=== PATIENT | male | born 1975 | race African-American/Black ===

== ENCOUNTER 2018-06-23 09:24 | Inpatient (IN) | payer OTHER ==
[2018-06-23 10:29] VITALS: BMI 27.3
--- NOTE | 2018-06-23 11:42 | HP ---
CIWA Score - Admission Criteria [facility] Guidelines: Admission for Medically Managed Detox: Requires at least one of the followin. CIWA greater than 12 2. Seizures within the past 24 hours 3. Delirium tremens within the past 24 hours 4. Hallucinations within the past 24 hours 5. Acute intervention needed for co occurring medical disorder 6. Acute intervention needed for co occurring psychiatric disorder 7. Severe withdrawal that cannot be handled at a lower level of care (continued vomiting, continued diarrhea, abnormal vital signs) requiring intravenous medication and/or fluids 8. Admission ROS [facility] - HPI Chief Complaint: i need help to stop drinking alcohol Allergies/Adverse Reactions: Allergies Allergy/AdvReac Type Severity Reaction Status Date / Time No Known Allergies Allergy Verified 06/23/18 10:08 History of Present Illness: this 43 years old male with alcohol dependence,seeking help,no withdrawal symptom,last detox [facility] multiple admissions in the past,last detox 06/01 [facility] completed detox hypertension rhabdomyolysis admitted in [facility] 06/20/18 to 06/22/18 schizophrenia and antisocial personality disorder longest period of sobriety 1 year plan for rehab history of left orchidectomy at childhood - Ebola screening Have you traveled outside of the country in the last 21 days: No (N) Have you had contact with anyone from an Ebola affected area: No Do you have a fever: No - Review of Systems Constitutional: Loss of Appetite, Malaise, Night Sweats, Changes in sleep, Weakness EENT: reports: Tearing, Nose Congestion Respiratory: reports: No Symptoms reported Cardiac: reports: No Symptoms Reported GI: reports: Nausea, Poor Appetite, Abdominal cramping : reports: No Symptoms Reported Musculoskeletal: reports: Back Pain, Muscle Pain Integumentary: reports: Dryness Neuro: reports: Headache, Tremors Endocrine: reports: No Symptoms Reported Hematology: reports: No Symptoms Reported Psychiatric: reports: No Sypmtoms Reported, Judgement Intact, Mood/Affect Appropiate, Orientated x3 (schizophrenia) Patient History - Patient Medical History Hx Anemia: No Hx Asthma: No Hx Chronic Obstructive Pulmonary Disease (COPD): No Hx Cancer: No Hx Cardiac Disorders: No Hx Congestive Heart Failure: No Hx Hypertension: Yes (on med) Hx Hypercholesterolemia: No Hx Pacemaker: No HX Cerebrovascular Accident: No Hx Seizures: No Hx Dementia: No Hx Diabetes: No Hx Gastrointestinal Disorders: No Hx Liver Disease: No Hx Genitourinary Disorders: No Hx Sexually Transmitted Disorders: Yes (treated fo syphilis in 2013 treated) Hx Renal Disease (ESRD): No Hx Thyroid Disease: No Hx Human Immunodeficiency Virus (HIV): No (07/02 negative) Hx Hepatitis C: No Hx Depression: No Hx Suicide Attempt: Yes ([place]) Hx Bipolar Disorder: Yes Hx Schizophrenia: Yes Other Medical History: no suicidal,no homicidal,rhabdomyolysis 06/20/18 to 06/22 admitted - Patient Surgical History Past Surgical History: Yes Other Surgical History: left orchidectomy left at childhood,torsion? - PPD History Previous Implant?: Yes Documented Results: Negative w/o proof Implanted On Prior [facility] Admission?: No PPD to be Administered?: Yes - Smoking Cessation Smoking history: Current every day smoker Have you smoked in the past 12 months: Yes Aproximately how many cigarettes per day: 20 Cigars Per Day: 0 Hx Chewing Tobacco Use: No Initiated information on smoking cessation: Yes 'Breaking Loose' booklet given: 06/23/18 - Substance & Tx. History Hx Alcohol Use: Yes Hx Substance Use: No Substance Use Type: Alcohol Hx Substance Use Treatment: Yes ([facility] 06/01 completed) - Substances abused Alcohol Substance route: Oral Frequency: Daily Amount used: 3 pt. liquor, 3 beers 40 cans each Age of first use: 13 Date of last use: 06/12/18 Family Disease History - Family Disease History Family History: Denies Admission Physical Exam [facility] - Vital Signs Vital Signs: Vital Signs - 24 hr 06/23/18 10:04 Temperature 97.9 F Pulse Rate 80 Respiratory 18 Rate Blood Pressure 166/113 H - Physical General Appearance: Yes: Within Normal Limits HEENTM: Yes: Normal ENT Inspection, JAZIEL, Pharynx Normal Respiratory: Yes: Lungs Clear, Normal Breath Sounds, No Respiratory Distress Neck: Yes: Within Normal Limits, Supple, Trachea in good position Breast: Yes: Within Normal Limits Cardiology: Yes: Within Normal Limits, Regular Rhythm, Regular Rate, S1, S2 Abdominal: Yes: Within Normal Limits, Normal Bowel Sounds, Non Tender, Flat, Soft Genitourinary: Yes: Within Normal Limits, Other (left orchidectomy) Back: Yes: Within Normal Limits Musculoskeletal: Yes: Within Normal Limits Extremities: Yes: Within Normal Limits Neurological: Yes: 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 NML intact, Fully Oriented, Alert, Motor Strength 5/5 Integumentary: Yes: Within Normal Limits Lymphatic: Yes: Within Normal Limits - Diagnostic (1) Alcohol dependence Current Visit: Yes Status: Chronic Cleared for Admission [facility] - Detox or Rehab Claeared for Rehab Admission: Yes Breathalyzer - Breathalyzer Breathalyzer: 0 Urine Drug Screen - Test Device Lot number: [id number] Expiration date: 02/13/20 - Control Is test valid?: Yes - Results Drug screen NEGATIVE: Yes Inpatient Rehab Admission - Rehab Decision to Admit Inpatient rehab admission?: Yes - Initial Determination Are CD services needed?: Yes Free of communicable disease: Yes Not in need of hospitalization: Yes - Rehab Admission Criteria Previous failed treatment: Yes Poor recovery environment: Yes Comorbidities: Yes Lacks judgement: No Patient is meeting Inpatient Rehab admission criteria:: Yes
[2018-06-23] MEDS ORDERED: guaiFENesin 200 MG/10 ML 10 ML UNIT-DOSE CUPS PO PRN (13:02)
[2018-06-23] MEDS ORDERED: MENTHOL/PHENOL 1 EACH UD MM PRN (13:02)
[2018-06-23] MEDS ORDERED: MAG HYDROX/AL HYDROX/SIMETH 30 ML UNIT-DOSE CUP PO PRN (13:02)
[2018-06-23] MEDS ORDERED: MAGNESIUM HYDROX 2400MG/30ML ORAL SUSPENSION 30 ML CUP PO PRN (13:02)
[2018-06-23] MEDS ORDERED: hydrOXYzine PAMOATE 25 MG CAPSULE (FP) PO PRN (13:02)
[2018-06-23] MEDS ORDERED: MAGNESIUM CITRATE 300 ML BOTTLE PO PRN (13:02)
[2018-06-23] MEDS ORDERED: P-EPHED 60MG/TRIPROLIDI 2.5MG TABLET PO PRN (13:02)
[2018-06-23] MEDS ORDERED: LOPERAMIDE HCL 2 MG CAPSULE PO PRN (13:02)
[2018-06-23] MEDS ORDERED: ACETAMINOPHEN 325 MG TABLET (FP) PO PRN (13:02)
[2018-06-23] MEDS: amLODIPine BESYLATE 5 MG TABLET (FP) PO SCH (14:05)
[2018-06-23] MEDS ORDERED: TUBERCULIN PPD 5 TU/0.1ML VIAL ID ONE (14:55)
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
[2018-06-23] MEDS: THIAMINE HCL 100 MG TABLET (FP) PO SCH (21:07)
[2018-06-23] MEDS: MIRTAZAPINE 15 MG TABLET (FP) PO SCH (21:08)
[2018-06-23] MEDS ORDERED: QUEtiapine FUMARATE 100 MG TABLET (FP) PO SCH (22:00)
[2018-06-23] MEDS ORDERED: MELATONIN 5 MG TABLETS PO PRN (22:00)
[2018-06-24 10:10] LABS: HEMATOCRIT 39.9 % (35.4-49); HEMOGLOBIN 13.4 GM/dL (11.7-16.9); MCH 29.5 pg (25.7-33.7); MCHC 33.7 g/dl (32.0-35.9); MEAN CELL VOLUME 87.5 fl (80-96); MEAN PLT VOLUME 8.4 fl (7.5-11.1); PLATELET COUNT 228 K/MM3 (134-434); RBC 4.56 M/mm3 (4.00-5.60); RDW 13.6 % (11.9-15.9); WHITE BLOOD COUNT 5.4 K/mm3 (4.0-10.0)
[2018-06-24 10:29] LABS: ALBUMIN 3.4 g/dl (3.4-5.0); ALK PHOS 53 U/L (45-117); ANION GAP 7 MMOL/L (8-16); BILIRUBIN,TOTAL 0.5 mg/dL (0.2-1); BLOOD UREA NITROGEN 17 mg/dL (7-18); CALCIUM 7.9 mg/dL (8.5-10.1); CHLORIDE 107 mmol/L (98-107); CO2 28 mmol/L (21-32); GLUCOSE,RANDOM 86 mg/dL (74-106); POTASSIUM 3.8 mmol/L (3.5-5.1); SGOT/AST 26 U/L (15-37); SGPT/ALT 46 U/L (13-61); SODIUM 142 mmol/L (136-145); TOT PROT 6.3 g/dl (6.4-8.2)
[2018-06-24] MEDS: risperiDONE 1 MG TABLET (FP) PO SCH (10:35)
[2018-06-24] MEDS: PRENATAL VITAMINS W/ FOLIC ACID TABLET (FP) PO SCH (10:35)
[2018-06-24] MEDS: amLODIPine BESYLATE 5 MG TABLET (FP) PO SCH (10:36)
[2018-06-24 11:00] LABS: SICKLE CELL SCREEN NEGATIVE (NEGATIVE)
--- NOTE | 2018-06-24 11:28 | PN ---
[facility] Progress Note Note: NEW ADMISSION TO REHAB. HX ALCOHOL DEPENDENCE. ALERT O X 3. Vital Signs - 24 hr 06/24/18 06/24/18 06/24/18 00:30 03:30 06:46 Temperature 97.6 F Pulse Rate 60 Respiratory 18 18 18 Rate Blood Pressure 142/86 06/24/18 10:00 Temperature Pulse Rate 71 Respiratory Rate Blood Pressure 137/91 Laboratory Tests 06/24/18 06/24/18 08:12 08:12 WBC 5.4 RBC 4.56 Hgb 13.4 Hct 39.9 MCV 87.5 MCH 29.5 MCHC 33.7 RDW 13.6 Plt Count 228 MPV 8.4 Sickle Cell Screen Negative Sodium 142 Potassium 3.8 Chloride 107 Carbon Dioxide 28 Anion Gap 7 L BUN 17 Creatinine 1.0 Creat Clearance w eGFR 81.17 Random Glucose 86 Calcium 7.9 L Total Bilirubin 0.5 AST 26 ALT 46 Alkaline Phosphatase 53 Total Protein 6.3 L Albumin 3.4 LABS NOTED PLAN:CONTINUE REHAB
[2018-06-24] MEDS: THIAMINE HCL 100 MG TABLET (FP) PO SCH (21:17)
[2018-06-24] MEDS: MIRTAZAPINE 15 MG TABLET (FP) PO SCH (21:17)
[2018-06-25] MEDS: amLODIPine BESYLATE 5 MG TABLET (FP) PO SCH (10:15)
[2018-06-25] MEDS: risperiDONE 1 MG TABLET (FP) PO SCH (10:15)
[2018-06-25] MEDS: PRENATAL VITAMINS W/ FOLIC ACID TABLET (FP) PO SCH (10:15)
[2018-06-25 15:12] LABS: URINE APPEARANCE CLEAR; URINE BILIRUBIN NEGATIVE (NEGATIVE); URINE COLOR YELLOW; URINE GLUCOSE (UA) NEGATIVE (NEGATIVE); URINE KETONE NEGATIVE (NEGATIVE); URINE LEUK ESTERASE NEGATIVE (NEGATIVE); URINE NITRITE NEGATIVE (NEGATIVE); URINE PROTEIN NEGATIVE (NEGATIVE); URINE UROBILINOGEN 0.2 mg/dL (0.2-1.0)
[2018-06-25] MEDS: MIRTAZAPINE 15 MG TABLET (FP) PO SCH (21:14)
[2018-06-25] MEDS: THIAMINE HCL 100 MG TABLET (FP) PO SCH (21:14)
[2018-06-26] MEDS: PRENATAL VITAMINS W/ FOLIC ACID TABLET (FP) PO SCH (09:45)
[2018-06-26] MEDS: risperiDONE 1 MG TABLET (FP) PO SCH (09:45)
[2018-06-26] MEDS: amLODIPine BESYLATE 5 MG TABLET (FP) PO SCH (09:45)
[2018-06-26] MEDS: THIAMINE HCL 100 MG TABLET (FP) PO SCH (21:06)
[2018-06-26] MEDS: MIRTAZAPINE 15 MG TABLET (FP) PO SCH (21:06)
[2018-06-27] MEDS: amLODIPine BESYLATE 5 MG TABLET (FP) PO SCH (10:07)
[2018-06-27] MEDS: risperiDONE 1 MG TABLET (FP) PO SCH (10:07)
[2018-06-27] MEDS: PRENATAL VITAMINS W/ FOLIC ACID TABLET (FP) PO SCH (10:07)
[2018-06-27] MEDS: MIRTAZAPINE 15 MG TABLET (FP) PO SCH (21:08)
[2018-06-27] MEDS: THIAMINE HCL 100 MG TABLET (FP) PO SCH (21:08)
[2018-06-28] MEDS: IBUPROFEN 400 MG TABLET (FP) PO PRN ×2 (08:53→21:11)
[2018-06-28] MEDS: risperiDONE 1 MG TABLET (FP) PO SCH (09:46)
[2018-06-28] MEDS: amLODIPine BESYLATE 5 MG TABLET (FP) PO SCH (09:46)
[2018-06-28] MEDS: PRENATAL VITAMINS W/ FOLIC ACID TABLET (FP) PO SCH (09:46)
--- NOTE | 2018-06-28 10:40 | EKG ---
Test Reason : Blood Pressure : / mmHG Vent. Rate : 070 BPM Atrial Rate : 070 BPM P-R Int : 130 ms QRS Dur : 090 ms QT Int : 406 ms P-R-T Axes : 049 042 -12 degrees QTc Int : 438 ms NORMAL SINUS RHYTHM NONSPECIFIC T WAVE ABNORMALITY ABNORMAL ECG NO PREVIOUS ECGS AVAILABLE Confirmed by NATAN MILLARD, RUTHY ([id number]) on 06/28/2018 10:39:55 AM Referred By: Hector CUELLAR Confirmed By:RUTHY GAMA MD
[2018-06-28] MEDS: THIAMINE HCL 100 MG TABLET (FP) PO SCH (21:11)
[2018-06-28] MEDS: MIRTAZAPINE 15 MG TABLET (FP) PO SCH (21:11)
[2018-06-29] MEDS: amLODIPine BESYLATE 5 MG TABLET (FP) PO SCH (10:03)
[2018-06-29] MEDS: PRENATAL VITAMINS W/ FOLIC ACID TABLET (FP) PO SCH (10:03)
[2018-06-29] MEDS: risperiDONE 1 MG TABLET (FP) PO SCH (10:03)
[2018-06-29] MEDS: IBUPROFEN 400 MG TABLET (FP) PO PRN ×2 (10:04→19:47)
[2018-06-29] MEDS: THIAMINE HCL 100 MG TABLET (FP) PO SCH (21:17)
[2018-06-29] MEDS: MIRTAZAPINE 15 MG TABLET (FP) PO SCH (21:17)
[2018-06-30] MEDS: PRENATAL VITAMINS W/ FOLIC ACID TABLET (FP) PO SCH (10:13)
[2018-06-30] MEDS: amLODIPine BESYLATE 5 MG TABLET (FP) PO SCH (10:13)
[2018-06-30] MEDS: risperiDONE 1 MG TABLET (FP) PO SCH (10:13)
[2018-06-30] MEDS: THIAMINE HCL 100 MG TABLET (FP) PO SCH (21:05)
[2018-06-30] MEDS: MIRTAZAPINE 15 MG TABLET (FP) PO SCH (21:05)
[2018-06-30] MEDS: IBUPROFEN 400 MG TABLET (FP) PO PRN (21:05)
[2018-07-01] MEDS: amLODIPine BESYLATE 5 MG TABLET (FP) PO SCH (09:55)
[2018-07-01] MEDS: risperiDONE 1 MG TABLET (FP) PO SCH (09:55)
[2018-07-01] MEDS: PRENATAL VITAMINS W/ FOLIC ACID TABLET (FP) PO SCH (09:55)
[2018-07-01] MEDS: THIAMINE HCL 100 MG TABLET (FP) PO SCH (21:10)
[2018-07-01] MEDS: IBUPROFEN 400 MG TABLET (FP) PO PRN (21:10)
[2018-07-01] MEDS: MIRTAZAPINE 15 MG TABLET (FP) PO SCH (21:10)
[2018-07-02] MEDS: PRENATAL VITAMINS W/ FOLIC ACID TABLET (FP) PO SCH (09:53)
[2018-07-02] MEDS: risperiDONE 1 MG TABLET (FP) PO SCH (09:53)
[2018-07-02] MEDS: amLODIPine BESYLATE 5 MG TABLET (FP) PO SCH (09:53)
[2018-07-02] MEDS: MIRTAZAPINE 15 MG TABLET (FP) PO SCH (21:08)
[2018-07-02] MEDS: THIAMINE HCL 100 MG TABLET (FP) PO SCH (21:08)
[2018-07-03] MEDS: amLODIPine BESYLATE 5 MG TABLET (FP) PO SCH (09:54)
[2018-07-03] MEDS: PRENATAL VITAMINS W/ FOLIC ACID TABLET (FP) PO SCH (09:54)
[2018-07-03] MEDS: risperiDONE 1 MG TABLET (FP) PO SCH (09:54)
[2018-07-03] MEDS: THIAMINE HCL 100 MG TABLET (FP) PO SCH (22:06)
[2018-07-03] MEDS: MIRTAZAPINE 15 MG TABLET (FP) PO SCH (22:06)
[2018-07-04] MEDS: amLODIPine BESYLATE 5 MG TABLET (FP) PO SCH (10:02)
[2018-07-04] MEDS: risperiDONE 1 MG TABLET (FP) PO SCH (10:02)
[2018-07-04] MEDS: PRENATAL VITAMINS W/ FOLIC ACID TABLET (FP) PO SCH (10:02)
[2018-07-04] MEDS: THIAMINE HCL 100 MG TABLET (FP) PO SCH (22:31)
[2018-07-04] MEDS: MIRTAZAPINE 15 MG TABLET (FP) PO SCH (22:31)
[2018-07-05] MEDS: risperiDONE 1 MG TABLET (FP) PO SCH (10:18)
[2018-07-05] MEDS: PRENATAL VITAMINS W/ FOLIC ACID TABLET (FP) PO SCH (10:18)
[2018-07-05] MEDS: amLODIPine BESYLATE 5 MG TABLET (FP) PO SCH (10:18)
[2018-07-05] MEDS: IBUPROFEN 400 MG TABLET (FP) PO PRN (21:09)
[2018-07-05] MEDS: MIRTAZAPINE 15 MG TABLET (FP) PO SCH (21:09)
[2018-07-05] MEDS: THIAMINE HCL 100 MG TABLET (FP) PO SCH (21:09)
[2018-07-06] MEDS: risperiDONE 1 MG TABLET (FP) PO SCH (10:16)
[2018-07-06] MEDS: amLODIPine BESYLATE 5 MG TABLET (FP) PO SCH (10:16)
[2018-07-06] MEDS: PRENATAL VITAMINS W/ FOLIC ACID TABLET (FP) PO SCH (10:16)
[2018-07-06] MEDS ORDERED: IBUPROFEN 600 MG TABLET (FP) PO PRN (16:24)
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
[2018-07-06] MEDS: MIRTAZAPINE 15 MG TABLET (FP) PO SCH (21:08)
[2018-07-06] MEDS: THIAMINE HCL 100 MG TABLET (FP) PO SCH (21:08)
[2018-07-07] MEDS: PRENATAL VITAMINS W/ FOLIC ACID TABLET (FP) PO SCH (10:16)
[2018-07-07] MEDS: risperiDONE 1 MG TABLET (FP) PO SCH (10:16)
[2018-07-07] MEDS: amLODIPine BESYLATE 5 MG TABLET (FP) PO SCH (12:00)
[2018-07-07] MEDS: MIRTAZAPINE 15 MG TABLET (FP) PO SCH (21:23)
[2018-07-07] MEDS: THIAMINE HCL 100 MG TABLET (FP) PO SCH (21:23)
[2018-07-07 23:46] VITALS: BP 150/98; PULSE 94; TEMP 97.5
[2018-07-07] MEDS ORDERED: ASPIRIN 81 MG CHEWABLE TABLETS PO ONE (23:52)
--- NOTE | 2018-07-08 00:48 | PN ---
[facility] Progress Note Note: Patient is complaining of chest pain with left hand numbness. He reports that he was sleeping and the pain woke him up Vital Signs Temperature 97.5 F L 07/07/18 23:45 Pulse Rate 94 H 07/07/18 23:45 Respiratory Rate 18 07/07/18 23:45 Blood Pressure 150/98 07/07/18 23:45 O2 Sat by Pulse Oximetry (%) Action: EKG ordered - NSR, T WAVE ABNORMALITY , CONSIDER INFERIOR ISCHEMIA ASPIRIN 81MG TABLET 1 TABLET ORAL ORDERED Patient is to be transferred to ER for further evaluation. Endorsed to Dr. Sánchez
[2018-07-08] MEDS: amLODIPine BESYLATE 5 MG TABLET (FP) PO SCH (11:06)
[2018-07-08] MEDS: PRENATAL VITAMINS W/ FOLIC ACID TABLET (FP) PO SCH (11:06)
[2018-07-08] MEDS: risperiDONE 1 MG TABLET (FP) PO SCH (11:07)
--- NOTE | 2018-07-08 12:10 | EKG ---
Test Reason : Blood Pressure : / mmHG Vent. Rate : 079 BPM Atrial Rate : 079 BPM P-R Int : 130 ms QRS Dur : 088 ms QT Int : 424 ms P-R-T Axes : 055 047 -50 degrees QTc Int : 486 ms NORMAL SINUS RHYTHM T WAVE ABNORMALITY, CONSIDER INFERIOR ISCHEMIA PROLONGED QT ABNORMAL ECG WHEN COMPARED WITH ECG OF 25-JUN-2018 13:55, INVERTED T WAVES HAVE REPLACED NONSPECIFIC T WAVE ABNORMALITY IN INFERIOR LEADS Confirmed by RUTHY GAMA MD ([id number]) on 07/08/2018 12:10:27 PM Referred By: Confirmed By:RUTHY GAMA MD
== END 2018-07-08 17:00 | disposition short-term general hospital (02) | DRG 772 ==
LOC: YASAS 09:24 → Y5N 11:58
PROVIDERS: ADMIT Neuromusculoskeletal Medicine & OMM; ATTEND Neuromusculoskeletal Medicine & OMM
PROC: HZ42ZZZ Group Counseling for Substance Abuse Treatment, Cognitive-Behavioral (ICD-10-PCS; principal; 2018-06-23)
DX: F10.20 Alcohol dependence, uncomplicated (principal); F17.210 Nicotine dependence, cigarettes, uncomplicated; F19.24 Other psychoactive substance dependence with psychoactive substance-induced mood disorder; F31.9 Bipolar disorder, unspecified; F20.9 Schizophrenia, unspecified; R07.9 Chest pain, unspecified; G47.00 Insomnia, unspecified; I10 Essential (primary) hypertension; L72.8 Other follicular cysts of the skin and subcutaneous tissue; Z90.79 Acquired absence of other genital organ(s); Z91.5 Personal history of self-harm; Z91.19 Patient's noncompliance with other medical treatment and regimen
CPT/HCPCS: 36415; 80053; 81003; 85027; 85660; 86593; 93005; 93010; J2794

== ENCOUNTER 2018-07-08 01:30 | Observation (INO) | payer OTHER ==
[2018-07-08 02:11] VITALS: BMI 27.3
--- NOTE | 2018-07-08 02:28 | PDOC ---
History of Present Illness - General Chief Complaint: Chest Pain Stated Complaint: CHEST PAIN Time Seen by Provider: 07/08/18 02:17 History Source: Patient Exam Limitations: No Limitations Past History - Travel Traveled outside of the country in the last 30 days: No Close contact w/someone who was outside of country & ill: No - Past Medical History Allergies/Adverse Reactions: Allergies Allergy/AdvReac Type Severity Reaction Status Date / Time No Known Allergies Allergy Verified 07/08/18 01:59 Home Medications: Ambulatory Orders Amlodipine Besylate [Norvasc -] 5 mg PO DAILY 06/23/18 Mirtazapine [Remeron -] 30 mg PO DAILY 06/23/18 Quetiapine Fumarate [Seroquel] 100 mg PO HS 06/23/18 Risperidone [Risperdal] 1 mg PO DAILY 06/23/18 Anemia: No Asthma: No Cancer: No Cardiac Disorders: No CVA: No COPD: No CHF: No Dementia: No Diabetes: No GI Disorders: No Disorders: No HTN: Yes (on med) Hypercholesterolemia: No Kidney Stones: No Liver Disease: No Seizures: No Thyroid Disease: No - Surgical History Abdominal Surgery: No Appendectomy: No Cardiac Surgery: No Cholecystectomy: No Lung Surgery: No Neurologic Surgery: No Orthopedic Surgery: No - Suicide/Smoking/Psychosocial Hx Smoking History: Current some day smoker Have you smoked in the past 12 months: Yes Number of Cigarettes Smoked Daily: 20 Cigars Per Day: 0 Information on smoking cessation initiated: No 'Breaking Loose' booklet given: 06/23/18 Hx Alcohol Use: Yes Drug/Substance Use Hx: Yes Substance Use Type: Alcohol Hx Substance Use Treatment: Yes ([facility] 06/01 completed) Review of Systems - Review of Systems Able to Perform ROS?: Yes Comments:: 07/08/18 05:44 CONSTITUTIONAL: Absent: fever, chills, diaphoresis, generalized weakness, malaise, loss of appetite HEENT: Absent: rhinorrhea, nasal congestion, throat pain, throat swelling, difficulty swallowing, mouth swelling, ear pain, eye pain, visual Changes CARDIOVASCULAR: Present: chest pain Absent: loss of consciousness, palpitations, irregular heart rate, peripheral edema RESPIRATORY: Absent: cough, shortness of breath, dyspnea with exertion, orthopnea, wheezing, stridor, hemoptysis GASTROINTESTINAL: Absent: abdominal pain, abdominal distension, nausea, vomiting, diarrhea, constipation, melena, hematochezia GENITOURINARY: Absent: dysuria, frequency, urgency, hesitancy, hematuria, flank pain, genital pain MUSCULOSKELETAL: Absent: myalgia, arthralgia, joint swelling SKIN: Absent: rash, itching, pallor HEMATOLOGIC/IMMUNOLOGIC: Absent: easy bleeding, easy bruising, lymphadenopathy, frequent infections ENDOCRINE: Absent: unexplained weight gain, unexplained weight loss, heat intolerance, cold intolerance NEUROLOGIC: Absent: headache, focal weakness or paresthesias, dizziness, unsteady gait, seizure, mental status changes, bladder or bowel incontinence PSYCHIATRIC: Absent: anxiety, depression, suicidal or homicidal ideation, hallucinations. Is the patient limited Turkish proficient: No *Physical Exam - Vital Signs Last Vital Signs Temp Pulse Resp BP Pulse Ox 97.4 F L 92 H 18 151/94 98 07/08/18 01:30 07/08/18 01:30 07/08/18 01:30 07/08/18 01:30 07/08/18 01:30 - Physical Exam Comments: 07/08/18 05:46 GENERAL: Well developed, well nourished. Awake and alert. No acute distress. HEENT: Normocephalic, atraumatic. PERRLA, EOMI. No conjunctival pallor. Sclera are non- icteric. Moist mucous membranes. Oropharynx is clear. NECK: Supple. Full ROM. No JVD. Carotid pulses 2+ and symmetric, without bruits. No thyromegaly. No lymphadenopathy. CARDIOVASCULAR: Regular rate and rhythm. No murmurs, rubs, or gallops. Distal pulses are 2+ and symmetric. PULMONARY: No evidence of respiratory distress. Lungs clear to auscultation bilaterally. No wheezing, rales or rhonchi. ABDOMINAL: Soft. Non-tender. Non-distended. No rebound or guarding. No organomegaly. Normoactive bowel sounds. MUSCULOSKELETAL Normal range of motion at all joints. No bony deformities or tenderness. No CVA tenderness. EXTREMITIES: No cyanosis. No clubbing. No edema. No calf tenderness. SKIN: Warm and dry. Normal capillary refill. No rashes. No jaundice. NEUROLOGICAL: Alert, awake, appropriate. Cranial nerves 2-12 intact. No deficits to light touch and temperature in face, upper extremities and lower extremities. No motor deficits in the in face, upper extremities and lower extremities. Normoreflexic in the upper and lower extremities. Normal speech. Toes are down- going bilaterally. Gait is normal without ataxia. PSYCHIATRIC: Cooperative. Good eye contact. Appropriate mood and affect. ED Treatment Course - LABORATORY CBC & Chemistry Diagram: 07/08/18 02:32 07/08/18 02:32 - RADIOLOGY Radiology Studies Ordered: Category Date Time Status CHEST PA & LAT [RAD] Stat Radiology 07/08/18 02:21 Ordered Medical Decision Making - Medical Decision Making 07/08/18 05:46 The patient is a 43-year-old male with past medical history of hypertension, schizophrenia, alcohol dependence currently in rehabilitation at [facility], who presents to the emergency department today for chest pain starting for 2 hours. He states that he noticed the chest pain after dinner he states that it goes down to his left arm. He was sent over to the ER for evaluation after having an EKG done at [facility] which showed some changes from his EKG done 2 weeks ago. Nothing makes the pain better or worse. He is holding his chest in vertical. Denies fevers, chills, palpitations, edema, nausea, vomiting, shortness of breath and difficulty breathing. Patient is currently in rehabilitation at [facility] for alcohol use. Currently on day 14 of treatment. A/P: Chest pain On exam Lungs CTAB, heart s1s2+, (-)m/r/g Patient reports chest pain symptoms for 2 hours. We'll order two troponins EKG: Rate 73 bpm NSR, QTC 453, normal axis. Flipped T waves in leads 2,3 aVF and V6; overall abnormal EKG This EKG was compared to an EKG performed on 06/25/18. At that time patient had normal-appearing T waves and inferior lateral leads. Over course of ED stay, patient reports relief of chest pain. No leukocytosis, electrolytes grossly normal. 2 troponins are < 0.02 3 hours apart. Given EKG changes we'll have to at placed in observation for stress test to rule out possible ischemia Patient is agreeable to plan. Hospitalist paged. *DC/Admit/Observation/Transfer Diagnosis at time of Disposition: Chest pain Qualifiers: Chest pain type: unspecified Qualified Code(s): R07.9 - Chest pain, unspecified - Discharge Dispostion Condition at time of disposition: Fair Decision to Admit order: Yes - Referrals - Patient Instructions - Post Discharge Activity
--- NOTE | 2018-07-08 02:29 | PDOC ---
*Physical Exam - Vital Signs Last Vital Signs Temp Pulse Resp BP Pulse Ox 97.4 F L 92 H 18 151/94 98 07/08/18 01:30 07/08/18 01:30 07/08/18 01:30 07/08/18 01:30 07/08/18 01:30 ED Treatment Course - LABORATORY CBC & Chemistry Diagram: 07/08/18 02:32 07/08/18 02:32 Medical Decision Making - Medical Decision Making 07/08/18 02:29 Patient seen by the advanced practice provider under my direct supervision. Ancillary testing reviewed as necessary. I agree with plan as outlined by the advanced practice provider. *DC/Admit/Observation/Transfer Diagnosis at time of Disposition: Chest pain - Discharge Dispostion Condition at time of disposition: Fair - Referrals - Patient Instructions - Post Discharge Activity
[2018-07-08 03:10] LABS: BASO % 0.3 % (0-2.0); EOS % 2.3 % (0-4.5); HEMATOCRIT 37.6 % (35.4-49); LYMPH % 27.8 % (8-40); MCH 30.5 pg (25.7-33.7); MCHC 34.6 g/dl (32.0-35.9); MEAN CELL VOLUME 88.1 fl (80-96); MEAN PLT VOLUME 8.1 fl (7.5-11.1); MONO % 13.9 % (3.8-10.2); NEUT % 55.7 % (42.8-82.8); PLATELET COUNT 257 K/MM3 (134-434); RBC 4.27 M/mm3 (4.00-5.60); RDW 14.1 % (11.9-15.9); WHITE BLOOD COUNT 5.8 K/mm3 (4.0-10.0)
[2018-07-08 03:23] LABS: INR 0.93 (0.83-1.09)
[2018-07-08 03:40] LABS: ALBUMIN 3.4 g/dl (3.4-5.0); ALK PHOS 60 U/L (45-117); ANION GAP 6 MMOL/L (8-16); BILIRUBIN,TOTAL 0.2 mg/dL (0.2-1); BLOOD UREA NITROGEN 17 mg/dL (7-18); CALCIUM 8.6 mg/dL (8.5-10.1); CHLORIDE 104 mmol/L (98-107); CO2 26 mmol/L (21-32); CREATININE 0.8 mg/dL (0.55-1.3); GLUCOSE,RANDOM 96 mg/dL (74-106); SGOT/AST 46 U/L (15-37); SGPT/ALT 146 U/L (13-61); SODIUM 137 mmol/L (136-145); TOT PROT 6.8 g/dl (6.4-8.2)
[2018-07-08] MEDS ORDERED: amLODIPine BESYLATE 5 MG TABLET (FP) ONE (09:44)
[2018-07-08] MEDS ORDERED: MIRTAZAPINE 15 MG TABLET (FP) ONE (09:45)
[2018-07-08] MEDS ORDERED: risperiDONE 0.5 MG TABLET (FP) ONE (09:45)
[2018-07-08] MEDS ORDERED: amLODIPine BESYLATE 5 MG TABLET (FP) PO SCH (10:00)
[2018-07-08] MEDS ORDERED: risperiDONE 1 MG TABLET (FP) PO SCH (10:00)
[2018-07-08] MEDS ORDERED: MIRTAZAPINE 30 MG TABLET (FP) PO SCH (10:00)
--- NOTE | 2018-07-08 11:07 | HP ---
CHIEF COMPLAINT: "I had chest pain" PCP: none HISTORY OF PRESENT ILLNESS: This is a 43 yo M with PMH of HTN, schizophrenia, EtOH abuse, presenting from [facility] rehab s/p 5 days of detox due to cp starting 2 hrs ago. patent describes left sided nonradiating sharp pain associated with LUE tingling, w/o aggravating or alleviating factors. pain lasteda few seconds and resolved before he arrived in ED. according to [facility], EKG done on site showed changes from initial admitting ekg. In ED patients ekg showed t inversions in inferior leads. Patient denies ever having this pain before. he endorses mild b/ l LE edema x 2 weeks Denies fevers, chills, palpitations, edema, nausea, vomiting, shortness of breath and difficulty breathing. Patient is currently in rehabilitation at [facility] for alcohol use. Currently on day 14 of treatment. ER course was notable for: (1)labs (2)cxr (3)ekg Recent Travel: denies PAST MEDICAL HISTORY: as above PAST SURGICAL HISTORY: as above Social History: Smokinppd Alcohol: yes Drugs: denies Family History: htn Allergies No Known Allergies Allergy (Verified 07/08/18 01:59) HOME MEDICATIONS: Home Medications Medication Instructions Recorded Amlodipine Besylate [Norvasc -] 5 mg PO DAILY 06/23/18 Mirtazapine [Remeron -] 30 mg PO DAILY 06/23/18 Quetiapine Fumarate [Seroquel] 100 mg PO HS 06/23/18 Risperidone [Risperdal] 1 mg PO DAILY 06/23/18 REVIEW OF SYSTEMS CONSTITUTIONAL: Absent: fever, chills HEENT: Absent: rhinorrhea, nasal congestion, throat pain CARDIOVASCULAR: Absent: chest pain, syncope, palpitations, irregular heart rate, lightheadedness , peripheral edema RESPIRATORY: Absent: cough, shortness of breath, dyspnea with exertion, orthopnea, wheezing, stridor, hemoptysis GASTROINTESTINAL: Absent: abdominal pain, abdominal distension, nausea, vomiting, diarrhea, constipation, melena, hematochezia GENITOURINARY: Absent: dysuria MUSCULOSKELETAL: Absent: back pain, neck pain SKIN: Absent: rash, itching, pallor HEMATOLOGIC/IMMUNOLOGIC: Absent: easy bleeding, easy bruising ENDOCRINE: Absent: unexplained weight gain, unexplained weight loss NEUROLOGIC: Absent: headache, focal weakness or paresthesias PSYCHIATRIC: Absent: anxiety, depression PHYSICAL EXAMINATION Vital Signs - 24 hr 07/08/18 07/08/18 07/08/18 01:30 04:35 06:55 Temperature 97.4 F L 98.6 F 98.1 F Pulse Rate 92 H Pulse Rate [ 71 92 H Right Radial] Respiratory 18 18 Rate Blood Pressure 151/94 Blood Pressure 154/109 H 146/95 [Right Arm] O2 Sat by Pulse 98 97 98 Oximetry (%) 07/08/18 07/08/18 07:46 08:20 Temperature 98.3 F Pulse Rate Pulse Rate [ 84 Right Radial] Respiratory 18 20 Rate Blood Pressure Blood Pressure 135/94 [Right Arm] O2 Sat by Pulse 98 97 Oximetry (%) GENERAL: Awake, alert, and fully oriented, in no acute distress. HEAD: Normal with no signs of trauma. EYES: Pupils equal, round and reactive to light, extraocular movements intact, sclera anicteric, conjunctiva clear. EARS, NOSE, THROAT: Moist mucous membranes. NECK: supple without JVD LUNGS: Breath sounds equal, clear to auscultation bilaterally. HEART: Regular rate and rhythm, normal S1 and S2 ABDOMEN: Soft, nontender, not distended, normoactive bowel sounds, no guarding, no rebound, no masses. MUSCULOSKELETAL: No CVA tenderness. UPPER EXTREMITIES: 2+ pulses, warm, well-perfused. No peripheral edema. LOWER EXTREMITIES: warm, well-perfused. No calf tenderness. trace b/l ankle edema NEUROLOGICAL: Cranial nerves II-XII grossly intact. Normal speech. Normal gait. PSYCHIATRIC: Cooperative. Good eye contact. Appropriate mood and affect. SKIN: Warm, dry Laboratory Results - last 24 hr 07/08/18 07/08/18 07/08/18 02:32 02:32 02:32 WBC 5.8 RBC 4.27 Hgb 13.0 Hct 37.6 MCV 88.1 MCH 30.5 MCHC 34.6 RDW 14.1 Plt Count 257 MPV 8.1 Absolute Neuts (auto) 3.3 Neutrophils % 55.7 Lymphocytes % 27.8 Monocytes % 13.9 H Eosinophils % 2.3 Basophils % 0.3 Nucleated RBC % 0 PT with INR 11.00 INR 0.93 D-Dimer Sodium 137 Potassium 4.0 Chloride 104 Carbon Dioxide 26 Anion Gap 6 L BUN 17 Creatinine 0.8 Creat Clearance w eGFR 105.01 Random Glucose 96 Calcium 8.6 Total Bilirubin 0.2 AST 46 H ALT 146 H Alkaline Phosphatase 60 Creatine Kinase Creatine Kinase Index CK-MB (CK-2) Troponin I Total Protein 6.8 Albumin 3.4 07/08/18 07/08/18 07/08/18 02:32 04:05 04:55 WBC RBC Hgb Hct MCV MCH MCHC RDW Plt Count MPV Absolute Neuts (auto) Neutrophils % Lymphocytes % Monocytes % Eosinophils % Basophils % Nucleated RBC % PT with INR INR D-Dimer 489 Sodium Potassium Chloride Carbon Dioxide Anion Gap BUN Creatinine Creat Clearance w eGFR Random Glucose Calcium Total Bilirubin AST ALT Alkaline Phosphatase Creatine Kinase 242 Creatine Kinase Index 0.7 CK-MB (CK-2) 1.8 Troponin I < 0.02 < 0.02 Total Protein Albumin 07/08/18 08:45 WBC RBC Hgb Hct MCV MCH MCHC RDW Plt Count MPV Absolute Neuts (auto) Neutrophils % Lymphocytes % Monocytes % Eosinophils % Basophils % Nucleated RBC % PT with INR INR D-Dimer Sodium Potassium Chloride Carbon Dioxide Anion Gap BUN Creatinine Creat Clearance w eGFR Random Glucose Calcium Total Bilirubin AST ALT Alkaline Phosphatase Creatine Kinase 215 Creatine Kinase Index 0.6 CK-MB (CK-2) 1.4 Troponin I < 0.02 Total Protein Albumin ASSESSMENT/PLAN: This is a 43 yo M with PMH of HTN, schizophrenia, EtOH abuse, presenting from [facility] rehab s/p 5 days of detox due to cp starting 2 hrs ago. Chest pain r/o acs HTN transaminitis Schizophrenia EtOH dependance Tobacco dependance -ekg appreciated, t inversions in inferior leads could be ninspecific -trop negative x 3 -tte unremarkable -f/u stress test, cardio consult -continue norvasc -abd us appreciated: fatty liver -contiue remeron, risperidal, seroquel -declines nicotine patch -na restricted diet -scds -obs tele Problem List - Problem (1) Chest pain Code(s): R07.9 - CHEST PAIN, UNSPECIFIED Qualifiers: Chest pain type: unspecified Qualified Code(s): R07.9 - Chest pain, unspecified (2) Hypertension Code(s): I10 - ESSENTIAL (PRIMARY) HYPERTENSION (3) Alcohol dependence Code(s): F10.20 - ALCOHOL DEPENDENCE, UNCOMPLICATED (4) Schizophrenia Code(s): F20.9 - SCHIZOPHRENIA, UNSPECIFIED Visit type - Emergency Visit Emergency Visit: Yes ED Registration Date: 07/08/18 Care time: The patient presented to the Emergency Department on the above date and was hospitalized for further evaluation of their emergent condition. - New Patient This patient is new to me today: Yes Date on this admission: 07/08/18 - Critical Care Critical Care patient: No
--- NOTE | 2018-07-08 12:05 | EKG ---
Test Reason : Blood Pressure : / mmHG Vent. Rate : 077 BPM Atrial Rate : 077 BPM P-R Int : 134 ms QRS Dur : 090 ms QT Int : 418 ms P-R-T Axes : 039 018 -12 degrees QTc Int : 473 ms NORMAL SINUS RHYTHM NONSPECIFIC T WAVE ABNORMALITY PROLONGED QT ABNORMAL ECG WHEN COMPARED WITH ECG OF 07-JUL-2018 22:59, NO SIGNIFICANT CHANGE WAS FOUND Confirmed by RUTHY GAMA MD ([id number]) on 07/08/2018 12:05:37 PM Referred By: Confirmed By:RUTHY GAMA MD
--- NOTE | 2018-07-08 13:14 | ECHO ---
Name: JOHN DESOUZA Exam:Adult Echocardiogram Study Date: 07/08/2018 09:19 AM Age: 43 yrs Reason For Study: Chest pain Height: 68 in Weight: 180 lb BSA: 2.0 m2 MMode/2D Measurements & Calculations IVSd: 1.1 cm Ao root diam: 3.1 cm LVIDd: 5.0 cm LA dimension: 2.9 cm LVIDs: 3.7 cm LVPWd: 1.1 cm EDV(Teich): 120.7 ml LVOT diam: 2.0 cm ESV(Teich): 58.9 ml LAV (MOD-bp): 33.6 ml Doppler Measurements & Calculations MV E max tashi: 68.9 cm/sec Ao V2 max: 153.4 cm/sec MV A max tashi: 85.9 cm/sec Ao max P.4 mmHg MV E/A: 0.80 AI P1/2t: 2018 msec MV dec time: 0.16 sec FIDEL(V,D): 1.7 cm2 AI max tashi: 419.4 cm/sec LV V1 max P.5 mmHg AI max P.4 mmHg LV V1 max: 79.1 cm/sec AI dec slope: 60.9 cm/sec2 PA V2 max: 103.2 cm/sec Med Peak E' Tashi: 10.0 cm/sec PA max P.3 mmHg Med E/e': 6.9 Lat Peak E' Tashi: 11.7 cm/sec Lat E/e': 5.9 PI Vmax: 172.4 cm/sec Procedure A complete two-dimensional transthoracic echocardiogram was performed (2D, M-mode, Doppler and color flow Doppler). Left Ventricle The left ventricular size, thickness and function are normal. The left ventricular ejection fraction is normal. Ejection Fraction = 55-60%. The left ventricular wall motion is normal. Right Ventricle The right ventricle is normal in size and function. Atria Normal left and right atrial size and function. Mitral Valve There is no mitral regurgitation noted. Tricuspid Valve No tricuspid regurgitation. There was insufficient TR detected to calculate RV systolic pressure. Aortic Valve No hemodynamically significant valvular aortic stenosis. Mild aortic regurgitation. Pulmonic Valve There is no pulmonic valvular regurgitation. Great Vessels The aortic root is normal size. Pericardium/Pleura There is no pericardial effusion. Interpretation Summary The left ventricular size, thickness and function are normal The right ventricle is normal in size and function. Mild aortic regurgitation. MD Glenn Polo 07/08/2018 01:14 PM
--- NOTE | 2018-07-08 13:50 | ECHO ---
Name: JOHN DESOUZA Exam:Exerise Stress Echocardiogram Study Date: 07/08/2018 12:09 PM Age: 43 yrs Reason For Study: Chest pain Height: 68 in Weight: 181 lb BSA: 2.0 m2 Procedure Details: Exercise Stress Echocardiogram with 2D imaging. Stress Comments A treadmill exercise test according to Pierre protocol was performed. Patient exercised 7:01 minutes, 93% mphr, 8.5 mets. Normal bp and hr response to exercise. No chest pain with exercise. Baseline ecg with sr and nonspecific inferolateral st-t changes. Nondiagnostic exercise stress ecg due to baseline ecg abnormalities. Exercise Echocardiogram No ischemic echo findings. Interpretation Summary Negative exercise stress echocardiogram, adequate by heart rate criteria, without symptoms or echocardiographic evidence of ischemia Reading Physician: MD Glenn Polo 07/08/2018 01:49 PM
--- NOTE | 2018-07-08 14:33 | CON.CARD ---
Consult Consult Specialty:: Cardiology Referred by:: Medicine Reason for Consultation:: chest pain - History of Present Illness Chief Complaint: chest pain History of Present Illness: 43M h/o HTN, schizophrenia, EtOH abuse p/w chest pain. Is at [facility] rehab for detox. L sided pain, nonradiating, sharp with LUE tingling. Lasted a few seconds and resolved. No further chest pain episodes. - Alcohol/Substance Use Hx Alcohol Use: Yes - Smoking History Smoking history: Current some day smoker Have you smoked in the past 12 months: Yes Aproximately how many cigarettes per day: 20 Home Medications - Allergies Allergies/Adverse Reactions: Allergies Allergy/AdvReac Type Severity Reaction Status Date / Time No Known Allergies Allergy Verified 07/08/18 01:59 - Home Medications Home Medications: Ambulatory Orders Amlodipine Besylate [Norvasc -] 5 mg PO DAILY 06/23/18 Mirtazapine [Remeron -] 30 mg PO DAILY 06/23/18 Quetiapine Fumarate [Seroquel] 100 mg PO HS 06/23/18 Risperidone [Risperdal] 1 mg PO DAILY 06/23/18 Family Disease History - Family Disease History Family History: Unremarkable Review of Systems - Review of Systems Constitutional: reports: No Symptoms Eyes: reports: No Symptoms HENT: reports: No Symptoms Neck: reports: No Symptoms Cardiovascular: reports: No Symptoms Respiratory: reports: No Symptoms Gastrointestinal: reports: No Symptoms Genitourinary: reports: No Symptoms Musculoskeletal: reports: No Symptoms Integumentary: reports: No Symptoms Neurological: reports: No Symptoms Endocrine: reports: No Symptoms Hematology/Lymphatic: reports: No Symptoms Psychiatric: reports: No Symptoms Vital Signs: Vital Signs Temperature 98.3 F 07/08/18 08:20 Pulse Rate 84 07/08/18 08:20 Respiratory Rate 20 07/08/18 08:20 Blood Pressure 135/94 07/08/18 08:20 O2 Sat by Pulse Oximetry (%) 97 07/08/18 08:20 Constitutional: Yes: Well Nourished, No Distress, Calm Eyes: Yes: Conjunctiva Clear, EOM Intact HENT: Yes: Atraumatic, Normocephalic Neck: Yes: Supple, Trachea Midline Respiratory: Yes: Regular, CTA Bilaterally Gastrointestinal: Yes: Normal Bowel Sounds, Soft Cardiovascular: Yes: Regular Rate and Rhythm JVD: No Carotid Bruit: No PMI: Non-Displaced Heart Sounds: Yes: S1, S2 Murmur: No: Systolic Murmur Musculoskeletal: No: Back Pain Extremities: No: Cold Edema: No Peripheral Pulses WNL: Yes Peripheral Pulses: 2+ Left Doralis Pedis, 2+ Right Dorsalis Pedis Integumentary: No: Jaundice Neurological: Yes: Alert, Oriented Psychiatric: No: Agitated - Other Data Labs, Other Data: CBC, BMP 07/08/18 02:32 07/08/18 02:32 INR, PTT INR 0.93 (0.83-1.09) 07/08/18 02:32 Troponin, BNP 07/08/18 07/08/18 07/08/18 02:32 04:55 08:45 Troponin I < 0.02 < 0.02 < 0.02 Troponin, BNP 07/08/18 07/08/18 07/08/18 02:32 04:55 08:45 Troponin I < 0.02 < 0.02 < 0.02 Assessment/Plan EKG: sinus, nl intervals, nonspecific T wave changes Echo 06/2018 nl LV/RV, mild AR Stress echo 06/2018 no ischemia Chest pain - trop neg x 2, no ischemic changes on EKG unlikely ACS - echo and stress echo unremarkable - no further workup at this point, stable for dc from cardiac perspective HTN - continue norvasc elevated LFTs - fatty liver on u/s, manage per primary EtOH dependence - undergoing detox schizophrenia - manage per primary
[2018-07-08 14:35] VITALS: BP 148/86; PULSE 82; TEMP 98
--- NOTE | 2018-07-08 14:38 | DS ---
Physical Exam: SUBJECTIVE: Patient seen and examined patient resting nad. no cp sob, cough, no complaints. feels at baseline OBJECTIVE: Vital Signs Period Temp Pulse Resp BP Sys/Osborne Pulse Ox Last 24 Hr 97.4 F-98.6 F 71-92 18-20 135-154/86-109 97-98 PHYSICAL EXAM GENERAL: Awake, alert, and fully oriented, in no acute distress. HEAD: Normal with no signs of trauma. EYES: Pupils equal, round and reactive to light, extraocular movements intact, sclera anicteric, conjunctiva clear. EARS, NOSE, THROAT: Moist mucous membranes. NECK: supple without JVD LUNGS: Breath sounds equal, clear to auscultation bilaterally. HEART: Regular rate and rhythm, normal S1 and S2 ABDOMEN: Soft, nontender, not distended, normoactive bowel sounds, no guarding, no rebound, no masses. MUSCULOSKELETAL: No CVA tenderness. UPPER EXTREMITIES: 2+ pulses, warm, well-perfused. No peripheral edema. LOWER EXTREMITIES: warm, well-perfused. No calf tenderness. trace b/l ankle edema NEUROLOGICAL: Cranial nerves II-XII grossly intact. Normal speech. Normal gait. PSYCHIATRIC: Cooperative. Good eye contact. Appropriate mood and affect. SKIN: Warm, dry LABS Laboratory Results - last 24 hr 07/08/18 07/08/18 07/08/18 02:32 02:32 02:32 WBC 5.8 RBC 4.27 Hgb 13.0 Hct 37.6 MCV 88.1 MCH 30.5 MCHC 34.6 RDW 14.1 Plt Count 257 MPV 8.1 Absolute Neuts (auto) 3.3 Neutrophils % 55.7 Lymphocytes % 27.8 Monocytes % 13.9 H Eosinophils % 2.3 Basophils % 0.3 Nucleated RBC % 0 PT with INR 11.00 INR 0.93 D-Dimer Sodium 137 Potassium 4.0 Chloride 104 Carbon Dioxide 26 Anion Gap 6 L BUN 17 Creatinine 0.8 Creat Clearance w eGFR 105.01 Random Glucose 96 Calcium 8.6 Total Bilirubin 0.2 AST 46 H ALT 146 H Alkaline Phosphatase 60 Creatine Kinase Creatine Kinase Index CK-MB (CK-2) Troponin I Total Protein 6.8 Albumin 3.4 07/08/18 07/08/18 07/08/18 02:32 04:05 04:55 WBC RBC Hgb Hct MCV MCH MCHC RDW Plt Count MPV Absolute Neuts (auto) Neutrophils % Lymphocytes % Monocytes % Eosinophils % Basophils % Nucleated RBC % PT with INR INR D-Dimer 489 Sodium Potassium Chloride Carbon Dioxide Anion Gap BUN Creatinine Creat Clearance w eGFR Random Glucose Calcium Total Bilirubin AST ALT Alkaline Phosphatase Creatine Kinase 242 Creatine Kinase Index 0.7 CK-MB (CK-2) 1.8 Troponin I < 0.02 < 0.02 Total Protein Albumin 07/08/18 08:45 WBC RBC Hgb Hct MCV MCH MCHC RDW Plt Count MPV Absolute Neuts (auto) Neutrophils % Lymphocytes % Monocytes % Eosinophils % Basophils % Nucleated RBC % PT with INR INR D-Dimer Sodium Potassium Chloride Carbon Dioxide Anion Gap BUN Creatinine Creat Clearance w eGFR Random Glucose Calcium Total Bilirubin AST ALT Alkaline Phosphatase Creatine Kinase 215 Creatine Kinase Index 0.6 CK-MB (CK-2) 1.4 Troponin I < 0.02 Total Protein Albumin HOSPITAL COURSE: Date of Admission:07/08/18 This is a 43 yo M with PMH of HTN, schizophrenia, EtOH abuse, presenting from [facility] rehab s/p 5 days of detox due to cp starting 2 hrs ago. patent describes left sided nonradiating sharp pain associated with LUE tingling, w/o aggravating or alleviating factors. pain lasteda few seconds and resolved before he arrived in ED. according to [facility], EKG done on site showed changes from initial admitting ekg. In ED patients ekg showed t inversions in inferior leads. Patient denies ever having this pain before. he endorses mild b/ l LE edema x 2 weeks. patient was placed in tele obbs. has 3 negative trops, an unremarkable tte and a negetive stress echo. he had an abd us that showed fatty liver. patient was dcd back to rehab. Date of Discharge: 07/08/18 Minutes to complete discharge: 35 Discharge Summary Reason For Visit: CHEST PAIN Current Active Problems Chest pain (Acute) Alcohol dependence (Chronic) Cyst (Chronic) Insomnia (Chronic) Nicotine dependence (Chronic) Non-compliance (Chronic) Schizophrenia (Chronic) Substance induced mood disorder (Chronic) Condition: Fair - Instructions - Home Medications Comprehensive Discharge Medication List: Ambulatory Orders Amlodipine Besylate [Norvasc -] 5 mg PO DAILY 06/23/18 Mirtazapine [Remeron -] 30 mg PO DAILY 06/23/18 Quetiapine Fumarate [Seroquel] 100 mg PO HS 06/23/18 Risperidone [Risperdal] 1 mg PO DAILY 06/23/18 Problem List - Problems (1) Hypertension Code(s): I10 - ESSENTIAL (PRIMARY) HYPERTENSION (2) Chest pain Code(s): R07.9 - CHEST PAIN, UNSPECIFIED Qualifiers: Chest pain type: unspecified Qualified Code(s): R07.9 - Chest pain, unspecified (3) Alcohol dependence Code(s): F10.20 - ALCOHOL DEPENDENCE, UNCOMPLICATED (4) Schizophrenia Code(s): F20.9 - SCHIZOPHRENIA, UNSPECIFIED This patient is new to me today: Yes Date on this admission: 07/08/18 Emergency Visit: Yes ED Registration Date: 07/08/18 Care time: The patient presented to the Emergency Department on the above date and was hospitalized for further evaluation of their emergent condition. Critical Care patient: No - Discharge Referral Referred to [facility] Med P.C.: No
--- NOTE | 2018-07-08 16:44 | PN ---
Teaching Attending Note Name of Resident: Marissa Denise ATTENDING PHYSICIAN STATEMENT I saw and evaluated the patient. I reviewed the resident's note and discussed the case with the resident. I agree with the resident's findings and plan as documented. SUBJECTIVE: No further chest pain. Denies palpitations/dyspnea/cough/sputum/ hemoptysis/fever/chills. OBJECTIVE: Afebrile, Hemodynamically Stable. Last Vital Signs Temp Pulse Resp BP Pulse Ox 98 F 82 18 148/86 97 07/08/18 14:31 07/08/18 14:31 07/08/18 14:31 07/08/18 14:31 07/08/18 08:20 HEENT - Atraumatic, Normocephalic. Heart - S1, S2, RRR Lungs - clear to auscultation Abdomen - Soft, non-tender. Bowel Sounds normal. Extremities - trace LE edema, no calf tenderness Laboratory Results - last 24 hr 07/08/18 07/08/18 07/08/18 02:32 02:32 02:32 WBC 5.8 RBC 4.27 Hgb 13.0 Hct 37.6 MCV 88.1 MCH 30.5 MCHC 34.6 RDW 14.1 Plt Count 257 MPV 8.1 Absolute Neuts (auto) 3.3 Neutrophils % 55.7 Lymphocytes % 27.8 Monocytes % 13.9 H Eosinophils % 2.3 Basophils % 0.3 Nucleated RBC % 0 PT with INR 11.00 INR 0.93 D-Dimer Sodium 137 Potassium 4.0 Chloride 104 Carbon Dioxide 26 Anion Gap 6 L BUN 17 Creatinine 0.8 Creat Clearance w eGFR 105.01 Random Glucose 96 Calcium 8.6 Total Bilirubin 0.2 AST 46 H ALT 146 H Alkaline Phosphatase 60 Creatine Kinase Creatine Kinase Index CK-MB (CK-2) Troponin I Total Protein 6.8 Albumin 3.4 07/08/18 07/08/18 07/08/18 02:32 04:05 04:55 WBC RBC Hgb Hct MCV MCH MCHC RDW Plt Count MPV Absolute Neuts (auto) Neutrophils % Lymphocytes % Monocytes % Eosinophils % Basophils % Nucleated RBC % PT with INR INR D-Dimer 489 Sodium Potassium Chloride Carbon Dioxide Anion Gap BUN Creatinine Creat Clearance w eGFR Random Glucose Calcium Total Bilirubin AST ALT Alkaline Phosphatase Creatine Kinase 242 Creatine Kinase Index 0.7 CK-MB (CK-2) 1.8 Troponin I < 0.02 < 0.02 Total Protein Albumin 07/08/18 08:45 WBC RBC Hgb Hct MCV MCH MCHC RDW Plt Count MPV Absolute Neuts (auto) Neutrophils % Lymphocytes % Monocytes % Eosinophils % Basophils % Nucleated RBC % PT with INR INR D-Dimer Sodium Potassium Chloride Carbon Dioxide Anion Gap BUN Creatinine Creat Clearance w eGFR Random Glucose Calcium Total Bilirubin AST ALT Alkaline Phosphatase Creatine Kinase 215 Creatine Kinase Index 0.6 CK-MB (CK-2) 1.4 Troponin I < 0.02 Total Protein Albumin Home Medications Medication Instructions Recorded Amlodipine Besylate [Norvasc -] 5 mg PO DAILY 06/23/18 Mirtazapine [Remeron -] 30 mg PO DAILY 06/23/18 Quetiapine Fumarate [Seroquel] 100 mg PO HS 06/23/18 Risperidone [Risperdal] 1 mg PO DAILY 06/23/18 ASSESSMENT AND PLAN: 43 year old male with history of HTN, schizophrenia, Alcohol Abuse, presents from [facility] with chest pain, now resolved. 1. Atypical CP ECG - SR, T wave inversions inferior leads. TropI neg x 3. Echo - normal Stress Echo - no evidence of ischemia Eval by Cardiology - cleared for discharge. 2. HTN - Continue Norvasc 3. Schizophrenia - stable. Continue Risperidal, Seroquel, Remeron 4. Elevated Transaminases - sec to Alcohol excess. Abdominal US - fatty liver. Abstinence advised. Medically stable for transfer back to [facility].
[2018-07-08] MEDS ORDERED: QUEtiapine FUMARATE 100 MG TABLET (FP) PO SCH (22:00)
== END 2018-07-08 15:56 | disposition other institution (70) ==
LOC: JER 01:30 → JERBED 05:52 → J4W 13:58
DX: R07.9 Chest pain, unspecified (principal); I10 Essential (primary) hypertension; F10.20 Alcohol dependence, uncomplicated; F17.210 Nicotine dependence, cigarettes, uncomplicated; F20.9 Schizophrenia, unspecified; F19.24 Other psychoactive substance dependence with psychoactive substance-induced mood disorder; R94.5 Abnormal results of liver function studies; G47.00 Insomnia, unspecified; Z91.14 Patient's other noncompliance with medication regimen
CPT/HCPCS: 36415; 71046-TC-FY; 76700-TC; 80053; 82550; 82553; 84484; 85025; 85379; 85610; 93005; 93010; 93306-TC; 93351; 99284-25; G0378; J2794

== ENCOUNTER 2018-07-08 17:43 | Inpatient (IN) | payer OTHER ==
[2018-07-08 17:49] VITALS: BMI 27.3
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
[2018-07-08] MEDS ORDERED: MAG HYDROX/AL HYDROX/SIMETH 30 ML UNIT-DOSE CUP PO PRN (18:15)
[2018-07-08] MEDS ORDERED: LOPERAMIDE HCL 2 MG CAPSULE PO PRN (18:15)
[2018-07-08] MEDS ORDERED: P-EPHED 60MG/TRIPROLIDI 2.5MG TABLET PO PRN (18:15)
[2018-07-08] MEDS ORDERED: ACETAMINOPHEN 325 MG TABLET (FP) PO PRN (18:15)
[2018-07-08] MEDS ORDERED: MAGNESIUM HYDROX 2400MG/30ML ORAL SUSPENSION 30 ML CUP PO PRN (18:15)
[2018-07-08] MEDS ORDERED: MENTHOL/PHENOL 1 EACH UD MM PRN (18:15)
[2018-07-08] MEDS ORDERED: guaiFENesin 200 MG/10 ML 10 ML UNIT-DOSE CUPS PO PRN (18:15)
[2018-07-08] MEDS ORDERED: MAGNESIUM CITRATE 300 ML BOTTLE PO PRN (18:15)
[2018-07-08] MEDS: hydrOXYzine PAMOATE 25 MG CAPSULE (FP) PO PRN (21:09)
[2018-07-08] MEDS: THIAMINE HCL 100 MG TABLET (FP) PO SCH (21:09)
[2018-07-08] MEDS ORDERED: MELATONIN 5 MG TABLETS PO PRN (22:00)
[2018-07-09] MEDS: NICOTINE 21 MG/24 HOURS TOPICAL PATCH TD SCH (09:54)
[2018-07-09] MEDS: PRENATAL VITAMINS W/ FOLIC ACID TABLET (FP) PO SCH (09:54)
[2018-07-09] MEDS: amLODIPine BESYLATE 5 MG TABLET (FP) PO SCH (09:54)
[2018-07-09] MEDS: risperiDONE 1 MG TABLET (FP) PO SCH (09:54)
[2018-07-09] MEDS: hydrOXYzine PAMOATE 25 MG CAPSULE (FP) PO PRN (09:56)
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
[2018-07-09] MEDS: CHLORHEXIDINE GLUCONATE 118 ML MOUTHWASH MM SCH ×2 (14:38→21:50)
[2018-07-09] MEDS: MIRTAZAPINE 30 MG TABLET (FP) PO SCH (21:50)
[2018-07-09] MEDS: THIAMINE HCL 100 MG TABLET (FP) PO SCH (21:50)
[2018-07-10] MEDS: CHLORHEXIDINE GLUCONATE 118 ML MOUTHWASH MM SCH ×2 (09:51→21:08)
[2018-07-10] MEDS: risperiDONE 1 MG TABLET (FP) PO SCH (09:51)
[2018-07-10] MEDS: PRENATAL VITAMINS W/ FOLIC ACID TABLET (FP) PO SCH (09:51)
[2018-07-10] MEDS: amLODIPine BESYLATE 5 MG TABLET (FP) PO SCH (09:51)
[2018-07-10] MEDS: NICOTINE 21 MG/24 HOURS TOPICAL PATCH TD SCH (09:51)
[2018-07-10] MEDS: MIRTAZAPINE 30 MG TABLET (FP) PO SCH (21:08)
[2018-07-10] MEDS: THIAMINE HCL 100 MG TABLET (FP) PO SCH (21:08)
[2018-07-11] MEDS: risperiDONE 1 MG TABLET (FP) PO SCH (09:48)
[2018-07-11] MEDS: PRENATAL VITAMINS W/ FOLIC ACID TABLET (FP) PO SCH (09:48)
[2018-07-11] MEDS: amLODIPine BESYLATE 5 MG TABLET (FP) PO SCH (09:48)
[2018-07-11] MEDS: CHLORHEXIDINE GLUCONATE 118 ML MOUTHWASH MM SCH ×2 (09:49→21:52)
[2018-07-11] MEDS: NICOTINE 21 MG/24 HOURS TOPICAL PATCH TD SCH (09:49)
[2018-07-11] MEDS: MIRTAZAPINE 30 MG TABLET (FP) PO SCH (21:53)
[2018-07-11] MEDS: THIAMINE HCL 100 MG TABLET (FP) PO SCH (21:53)
[2018-07-12] MEDS: amLODIPine BESYLATE 5 MG TABLET (FP) PO SCH (09:30)
[2018-07-12] MEDS: CHLORHEXIDINE GLUCONATE 118 ML MOUTHWASH MM SCH ×2 (09:30→21:18)
[2018-07-12] MEDS: risperiDONE 1 MG TABLET (FP) PO SCH (09:30)
[2018-07-12] MEDS: NICOTINE 21 MG/24 HOURS TOPICAL PATCH TD SCH (09:30)
[2018-07-12] MEDS: PRENATAL VITAMINS W/ FOLIC ACID TABLET (FP) PO SCH (09:30)
[2018-07-12] MEDS: IBUPROFEN 400 MG TABLET (FP) PO PRN (09:31)
[2018-07-12] MEDS: THIAMINE HCL 100 MG TABLET (FP) PO SCH (21:17)
[2018-07-12] MEDS: MIRTAZAPINE 30 MG TABLET (FP) PO SCH (21:17)
[2018-07-13] MEDS: risperiDONE 1 MG TABLET (FP) PO SCH (10:00)
[2018-07-13] MEDS: amLODIPine BESYLATE 5 MG TABLET (FP) PO SCH (10:00)
[2018-07-13] MEDS: NICOTINE 21 MG/24 HOURS TOPICAL PATCH TD SCH (10:00)
[2018-07-13] MEDS: PRENATAL VITAMINS W/ FOLIC ACID TABLET (FP) PO SCH (10:00)
[2018-07-13] MEDS: CHLORHEXIDINE GLUCONATE 118 ML MOUTHWASH MM SCH ×2 (10:01→22:10)
[2018-07-13] MEDS: THIAMINE HCL 100 MG TABLET (FP) PO SCH (22:21)
[2018-07-13] MEDS: MIRTAZAPINE 30 MG TABLET (FP) PO SCH (22:21)
[2018-07-14] MEDS: NICOTINE 21 MG/24 HOURS TOPICAL PATCH TD SCH (09:47)
[2018-07-14] MEDS: CHLORHEXIDINE GLUCONATE 118 ML MOUTHWASH MM SCH ×2 (09:47→21:24)
[2018-07-14] MEDS: PRENATAL VITAMINS W/ FOLIC ACID TABLET (FP) PO SCH (09:47)
[2018-07-14] MEDS: amLODIPine BESYLATE 5 MG TABLET (FP) PO SCH (09:47)
[2018-07-14] MEDS: risperiDONE 1 MG TABLET (FP) PO SCH (09:47)
[2018-07-14] MEDS: MIRTAZAPINE 30 MG TABLET (FP) PO SCH (21:24)
[2018-07-14] MEDS: THIAMINE HCL 100 MG TABLET (FP) PO SCH (21:25)
[2018-07-15] MEDS: CHLORHEXIDINE GLUCONATE 118 ML MOUTHWASH MM SCH ×2 (09:53→21:12)
[2018-07-15] MEDS: risperiDONE 1 MG TABLET (FP) PO SCH (09:53)
[2018-07-15] MEDS: NICOTINE 21 MG/24 HOURS TOPICAL PATCH TD SCH (09:53)
[2018-07-15] MEDS: PRENATAL VITAMINS W/ FOLIC ACID TABLET (FP) PO SCH (09:53)
[2018-07-15] MEDS: amLODIPine BESYLATE 5 MG TABLET (FP) PO SCH (09:53)
[2018-07-15] MEDS: THIAMINE HCL 100 MG TABLET (FP) PO SCH (21:11)
[2018-07-15] MEDS: MIRTAZAPINE 30 MG TABLET (FP) PO SCH (21:11)
[2018-07-16] MEDS: risperiDONE 1 MG TABLET (FP) PO SCH (09:33)
[2018-07-16] MEDS: PRENATAL VITAMINS W/ FOLIC ACID TABLET (FP) PO SCH (09:33)
[2018-07-16] MEDS: amLODIPine BESYLATE 5 MG TABLET (FP) PO SCH (09:33)
[2018-07-16] MEDS: NICOTINE 21 MG/24 HOURS TOPICAL PATCH TD SCH (09:34)
[2018-07-16] MEDS: CHLORHEXIDINE GLUCONATE 118 ML MOUTHWASH MM SCH ×2 (09:34→21:42)
[2018-07-16] MEDS: THIAMINE HCL 100 MG TABLET (FP) PO SCH (21:42)
[2018-07-16] MEDS: MIRTAZAPINE 30 MG TABLET (FP) PO SCH (21:42)
[2018-07-17] MEDS: risperiDONE 1 MG TABLET (FP) PO SCH (09:50)
[2018-07-17] MEDS: PRENATAL VITAMINS W/ FOLIC ACID TABLET (FP) PO SCH (09:50)
[2018-07-17] MEDS: NICOTINE 21 MG/24 HOURS TOPICAL PATCH TD SCH (09:50)
[2018-07-17] MEDS: CHLORHEXIDINE GLUCONATE 118 ML MOUTHWASH MM SCH ×2 (09:50→22:06)
[2018-07-17] MEDS: amLODIPine BESYLATE 5 MG TABLET (FP) PO SCH (09:50)
[2018-07-17] MEDS: THIAMINE HCL 100 MG TABLET (FP) PO SCH (22:06)
[2018-07-17] MEDS: MIRTAZAPINE 30 MG TABLET (FP) PO SCH (22:06)
[2018-07-18] MEDS: NICOTINE 21 MG/24 HOURS TOPICAL PATCH TD SCH (09:59)
[2018-07-18] MEDS: amLODIPine BESYLATE 5 MG TABLET (FP) PO SCH (09:59)
[2018-07-18] MEDS: PRENATAL VITAMINS W/ FOLIC ACID TABLET (FP) PO SCH (09:59)
[2018-07-18] MEDS: CHLORHEXIDINE GLUCONATE 118 ML MOUTHWASH MM SCH ×2 (10:00→21:24)
[2018-07-18] MEDS: risperiDONE 1 MG TABLET (FP) PO SCH (10:00)
[2018-07-18] MEDS: THIAMINE HCL 100 MG TABLET (FP) PO SCH (21:24)
[2018-07-18] MEDS: MIRTAZAPINE 30 MG TABLET (FP) PO SCH (21:24)
[2018-07-19] MEDS: PRENATAL VITAMINS W/ FOLIC ACID TABLET (FP) PO SCH (11:14)
[2018-07-19] MEDS: IBUPROFEN 400 MG TABLET (FP) PO PRN (11:16)
[2018-07-19] MEDS: NICOTINE 21 MG/24 HOURS TOPICAL PATCH TD SCH (11:58)
[2018-07-19] MEDS: CHLORHEXIDINE GLUCONATE 118 ML MOUTHWASH MM SCH ×2 (12:01→21:16)
[2018-07-19] MEDS: amLODIPine BESYLATE 5 MG TABLET (FP) PO SCH (12:05)
[2018-07-19] MEDS: risperiDONE 1 MG TABLET (FP) PO SCH (12:06)
[2018-07-19] MEDS: MIRTAZAPINE 30 MG TABLET (FP) PO SCH (21:16)
[2018-07-19] MEDS: THIAMINE HCL 100 MG TABLET (FP) PO SCH (21:16)
[2018-07-20] MEDS: amLODIPine BESYLATE 5 MG TABLET (FP) PO SCH (10:13)
[2018-07-20] MEDS: PRENATAL VITAMINS W/ FOLIC ACID TABLET (FP) PO SCH (10:13)
[2018-07-20] MEDS: risperiDONE 1 MG TABLET (FP) PO SCH (10:13)
[2018-07-20] MEDS: CHLORHEXIDINE GLUCONATE 118 ML MOUTHWASH MM SCH ×2 (10:14→21:41)
[2018-07-20] MEDS: NICOTINE 21 MG/24 HOURS TOPICAL PATCH TD SCH (10:14)
[2018-07-20 11:30] VITALS: PULSE 85
[2018-07-20] MEDS: MIRTAZAPINE 30 MG TABLET (FP) PO SCH (21:41)
[2018-07-20] MEDS: THIAMINE HCL 100 MG TABLET (FP) PO SCH (21:42)
[2018-07-21 06:56] VITALS: BP 132/79; TEMP 97.8
== END 2018-07-21 07:40 | disposition home or self-care (01) | DRG 772 ==
LOC: YASAS 17:43 → Y5N 19:04
PROVIDERS: ADMIT Neuromusculoskeletal Medicine & OMM; ATTEND Neuromusculoskeletal Medicine & OMM
PROC: HZ42ZZZ Group Counseling for Substance Abuse Treatment, Cognitive-Behavioral (ICD-10-PCS; principal; 2018-07-11)
DX: F10.20 Alcohol dependence, uncomplicated (principal); F17.210 Nicotine dependence, cigarettes, uncomplicated; F20.9 Schizophrenia, unspecified; I10 Essential (primary) hypertension; J02.9 Acute pharyngitis, unspecified; Z87.438 Personal history of other diseases of male genital organs; Z91.5 Personal history of self-harm
CPT/HCPCS: 36415; 71046-TC-FY; 76700-TC; 80053; 82550; 82553; 84484; 85025; 85379; 85610; 93005; 93010; 93306-TC; 93351; 99284-25; G0378; J2794

== ENCOUNTER 2019-11-14 13:37 | Inpatient (IN) | payer OTHER ==
--- NOTE | 2019-11-14 13:44 | BHS.RME ---
Substance Use & Tx History - Substance Use History Alcohol Substance amount: 3 pints vodka + 3 beers 40 oz Frequency of use: Daily Substance route: Oral Nicotine Substance amount: 20 ciggs Frequency of use: Daily Substance route: Smoking Date of Last Use: 11/14/19 Physical/Psych/Mental Status - Behavior General Behavior: Increased activity (restlessness, agitation) Eye Contact: Normal - Cooperativeness Cooperativeness: Cooperative - Thinking Thought Processes: Tight, Logical, Goal Directed - Physical Health Problems Is patient presently having any pain?: No Does patient presently have any injuries (include location): No Does patient currently have a fever: No Is patient : No CIWA Nausea/Vomitin Muscle Tremors: 7-Severe,w/o Arm Extended Anxiety: 4-Mod. Anxious/Guarded Agitation: 4-Moderately Restless Paroxysmal Sweats: 4-Forehead w/Sweat Beads Orientation: 0-Oriented Tacttile Disturbances: 0-None Auditory Disturbances: 0-None Visual Disturbances: 0-None Headache: 2-Mild CIWA-Ar Total Score: 23
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
[2019-11-14] MEDS ORDERED: chlordiazePOXIDE HCL 25 MG CAPSULE PO ONE (14:14)
[2019-11-14] MEDS ORDERED: ACETAMINOPHEN 325 MG TABLET (FP) PO PRN ×2 (14:15)
[2019-11-14] MEDS ORDERED: MAGNESIUM HYDROX 2400MG/30ML ORAL SUSPENSION 30 ML CUP PO PRN (14:15)
[2019-11-14] MEDS ORDERED: BISMUTH SUBSALICYLATE 524 MG/30 ML UD PO PRN (14:15)
[2019-11-14] MEDS ORDERED: ONDANSETRON *ODT* 4 MG TABLET SL PRN (14:15)
[2019-11-14] MEDS ORDERED: IBUPROFEN 400 MG TABLET (FP) PO PRN (14:15)
[2019-11-14] MEDS ORDERED: METHOCARBAMOL 500 MG TABLET PO PRN (14:15)
[2019-11-14] MEDS ORDERED: MAG HYDROX/AL HYDROX/SIMETH 30 ML UNIT-DOSE CUP PO PRN (14:15)
[2019-11-14] MEDS ORDERED: MAGNESIUM CITRATE 300 ML BOTTLE PO PRN (14:15)
[2019-11-14] MEDS ORDERED: chlordiazePOXIDE HCL 25 MG CAPSULE PO PRN (14:15)
[2019-11-14] MEDS ORDERED: MENTHOL/PHENOL 1 EACH UD MM PRN (14:15)
[2019-11-14] MEDS ORDERED: NICOTINE POLACRILEX 2 MG GUM BUC PRN (14:15)
[2019-11-14 14:38] VITALS: BMI 24.7
[2019-11-14] MEDS: NICOTINE 21 MG/24 HOURS TOPICAL PATCH TD SCH (15:42)
[2019-11-14] MEDS ORDERED: hydrOXYzine PAMOATE 25 MG CAPSULE (FP) PO PRN (15:43)
[2019-11-14] MEDS ORDERED: metoPROLOL SUCCINATE 25 MG TAB.SR.24H (FP) PO ONE (15:44)
[2019-11-14 17:34] LABS: HEMATOCRIT 38.9 % (35.4-49); HEMOGLOBIN 13.1 GM/dL (11.7-16.9); MCH 30.1 pg (25.7-33.7); MCHC 33.6 g/dl (32.0-35.9); MEAN CELL VOLUME 89.5 fl (80-96); MEAN PLT VOLUME 8.3 fl (7.5-11.1); PLATELET COUNT 312 K/MM3 (134-434); RBC 4.35 M/mm3 (4.00-5.60); RDW 15.1 % (11.9-15.9); WHITE BLOOD COUNT 4.6 K/mm3 (4.0-10.0)
[2019-11-14 17:46] LABS: ALBUMIN 3.5 g/dl (3.4-5.0); BILIRUBIN,TOTAL 0.4 mg/dL (0.2-1); BLOOD UREA NITROGEN 11.1 mg/dL (7-18); CALCIUM 8.6 mg/dL (8.5-10.1); CREATININE 0.9 mg/dL (0.55-1.3); POTASSIUM 3.8 mmol/L (3.5-5.1); TOT PROT 7.7 g/dl (6.4-8.2)
[2019-11-14] MEDS: chlordiazePOXIDE HCL 25 MG CAPSULE PO SCH ×2 (17:55→22:48)
[2019-11-14] MEDS ORDERED: hydrOXYzine PAMOATE 25 MG CAPSULE (FP) PO SCH (18:00)
[2019-11-14] MEDS: MELATONIN 5 MG TABLETS PO SCH (22:48)
[2019-11-14] MEDS: THIAMINE HCL 100 MG TABLET (FP) PO SCH (22:48)
[2019-11-14] MEDS: PATIENT'S OWN MEDICATION (NON-FORMULARY) (Ciprofloxacin [Cipro -] 500 MG) PO SCH (22:48)
[2019-11-15] MEDS: chlordiazePOXIDE HCL 25 MG CAPSULE PO SCH ×4 (05:17→22:16)
[2019-11-15] MEDS ORDERED: amLODIPine BESYLATE 5 MG TABLET (FP) PO SCH (10:00)
[2019-11-15] MEDS ORDERED: amLODIPine BESYLATE 10 MG TABLET (FP) PO SCH (10:00)
[2019-11-15] MEDS ORDERED: PRENATAL VITAMINS W/ FOLIC ACID TABLET (FP) PO SCH (10:00)
[2019-11-15] MEDS: PATIENT'S OWN MEDICATION (NON-FORMULARY) (Ciprofloxacin [Cipro -] 500 MG) PO SCH ×2 (10:10→22:19)
[2019-11-15] MEDS: NICOTINE 21 MG/24 HOURS TOPICAL PATCH TD SCH (10:12)
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
--- NOTE | 2019-11-15 14:51 | PN ---
S CIWA - CIWA Score Nausea/Vomitin-Mild Nausea/No Vomiting Muscle Tremors: 4-Moderate,w/Arms Extend Anxiety: 4-Mod. Anxious/Guarded Agitation: 2 Paroxysmal Sweats: 2 Orientation: 0-Oriented Tacttile Disturbances: 1-Very Mild Itch/Numbness Auditory Disturbances: 0-None Visual Disturbances: 2-Mild Sensitivity Headache: 2-Mild CIWA-Ar Total Score: 18 BHS Progress Note (SOAP) Subjective: 44 years old male was admitted on 11/14/19 for alcohol withdrawal sx management treating with librium detox regiment feels tired ate breakfast and lunch in room resting in bed bmi 24.8 ensure 120 ml po tid with meals Objective: 11/15/19 15:00 Vital Signs - 24 hr 11/14/19 11/14/19 11/14/19 15:34 16:31 20:48 Temperature 97.1 F L 98.1 F 98.0 F Pulse Rate 62 67 75 Respiratory 18 18 18 Rate Blood Pressure 195/119 H 141/86 138/100 O2 Sat by Pulse 99 96 Oximetry (%) 11/15/19 11/15/19 11/15/19 06:24 08:38 12:32 Temperature 97.7 F 96.9 F L 97.2 F L Pulse Rate 51 L 64 87 Respiratory 18 18 18 Rate Blood Pressure 137/88 140/105 H 137/99 O2 Sat by Pulse 99 98 Oximetry (%) Laboratory Tests 11/14/19 11/14/19 11/14/19 14:15 14:15 14:15 WBC 4.6 RBC 4.35 Hgb 13.1 Hct 38.9 MCV 89.5 MCH 30.1 MCHC 33.6 RDW 15.1 Plt Count 312 D MPV 8.3 Sodium 141 Potassium 3.8 Chloride 105 Carbon Dioxide 28 Anion Gap 7 L BUN 11.1 Creatinine 0.9 Est GFR (CKD-EPI)AfAm 119.13 Est GFR (CKD-EPI)NonAf 102.79 Random Glucose 96 Calcium 8.6 Total Bilirubin 0.4 AST 44 H ALT 48 Alkaline Phosphatase 77 Total Protein 7.7 Albumin 3.5 Syphilis Serology Reactive A* RPR Titer 11/14/19 14:15 WBC RBC Hgb Hct MCV MCH MCHC RDW Plt Count MPV Sodium Potassium Chloride Carbon Dioxide Anion Gap BUN Creatinine Est GFR (CKD-EPI)AfAm Est GFR (CKD-EPI)NonAf Random Glucose Calcium Total Bilirubin AST ALT Alkaline Phosphatase Total Protein Albumin Syphilis Serology RPR Titer Reactive 1:1 H D syphilis contacted treated covid pending 11/15/19 15:01 Assessment: 11/15/19 15:01 alcohol withdrawal Plan: librium regiment
[2019-11-15] MEDS ORDERED: ARTIFICIAL TEARS (POLYVINYL ALCOHOL) OPTH DROPS OU PRN (18:03)
[2019-11-15] MEDS ORDERED: risperiDONE 1 MG TABLET PO SCH (22:00)
[2019-11-15] MEDS ORDERED: MIRTAZAPINE 15 MG TABLET (FP) PO SCH (22:00)
[2019-11-15] MEDS: THIAMINE HCL 100 MG TABLET (FP) PO SCH (22:17)
[2019-11-15] MEDS: MELATONIN 5 MG TABLETS PO SCH (22:17)
[2019-11-16] MEDS ORDERED: chlordiazePOXIDE HCL 25 MG CAPSULE PO SCH (05:00)
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
[2019-11-16 09:16] VITALS: BP 138/102; PULSE 79; TEMP 97.1
[2019-11-17] MEDS ORDERED: chlordiazePOXIDE HCL 10 MG CAPSULE PO PRN
[2019-11-17] MEDS ORDERED: chlordiazePOXIDE HCL 10 MG CAPSULE PO SCH (05:00)
[2019-11-18] MEDS ORDERED: chlordiazePOXIDE HCL 10 MG CAPSULE PO SCH (05:00)
[2019-11-19] MEDS ORDERED: chlordiazePOXIDE HCL 10 MG CAPSULE PO ONE (05:00)
== END 2019-11-16 09:20 | disposition home or self-care (01) | DRG 775 ==
LOC: YASAS 13:37 → Y3N 14:48
PROVIDERS: ADMIT Allergy & Immunology; ATTEND Allergy & Immunology
PROC: HZ2ZZZZ Detoxification Services for Substance Abuse Treatment (ICD-10-PCS; principal; 2019-11-14)
DX: F10.230 Alcohol dependence with withdrawal, uncomplicated (principal); F17.213 Nicotine dependence, cigarettes, with withdrawal; F31.9 Bipolar disorder, unspecified; F19.24 Other psychoactive substance dependence with psychoactive substance-induced mood disorder; G47.00 Insomnia, unspecified; I10 Essential (primary) hypertension; J45.909 Unspecified asthma, uncomplicated; Z63.4 Disappearance and death of family member; Z91.410 Personal history of adult physical and sexual abuse; Z90.79 Acquired absence of other genital organ(s); Z86.19 Personal history of other infectious and parasitic diseases; Z56.0 Unemployment, unspecified; Z59.0 Homelessness
CPT/HCPCS: 36415; 80053; 85027; 86593; 86780; J2794; U0003

== ENCOUNTER 2019-12-02 17:11 | Inpatient (IN) | payer OTHER ==
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
[2019-12-02 19:05] VITALS: BMI 24.9
--- NOTE | 2019-12-02 19:22 | BHS.RME ---
Substance Use & Tx History - Substance Use History Alcohol Substance amount: 6 pints of Vodka Frequency of use: Daily Substance route: Oral Date of Last Use: 12/02/19 - Last Treatment Date of last treatment: 11/14/2019-11/16/2019 Where was last treatment: Detox Physical/Psych/Mental Status - Behavior Eye Contact: Normal - Cooperativeness Cooperativeness: Cooperative - Thinking Thought Processes: Logical Thought content: Future oriented - Physical Health Problems Is patient presently having any pain?: Yes (back pain) Does patient presently have any injuries (include location): No Does patient currently have a fever: No Is patient : No CIWA Nausea/Vomitin Muscle Tremors: 6 Anxiety: 4-Mod. Anxious/Guarded Agitation: 3 Paroxysmal Sweats: 2 Orientation: 0-Oriented Tacttile Disturbances: 0-None Auditory Disturbances: 0-None Visual Disturbances: 0-None Headache: 3-Moderate CIWA-Ar Total Score: 20 Treatment Recommendation - Level of Care Level of Care: Opioid Treatment Program (OTP) (Alcohol detox)
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
[2019-12-02] MEDS ORDERED: NICOTINE POLACRILEX 2 MG GUM BUC PRN (20:24)
[2019-12-02] MEDS ORDERED: MAGNESIUM CITRATE 300 ML BOTTLE PO PRN (20:24)
[2019-12-02] MEDS ORDERED: ONDANSETRON *ODT* 4 MG TABLET SL PRN (20:24)
[2019-12-02] MEDS ORDERED: MENTHOL/PHENOL 1 EACH UD MM PRN (20:24)
[2019-12-02] MEDS ORDERED: MAG HYDROX/AL HYDROX/SIMETH 30 ML UNIT-DOSE CUP PO PRN (20:24)
[2019-12-02] MEDS ORDERED: METHOCARBAMOL 500 MG TABLET PO PRN (20:24)
[2019-12-02] MEDS ORDERED: BISMUTH SUBSALICYLATE 524 MG/30 ML UD PO PRN (20:24)
[2019-12-02] MEDS ORDERED: ACETAMINOPHEN 325 MG TABLET (FP) PO PRN ×2 (20:24)
[2019-12-02] MEDS ORDERED: hydrOXYzine PAMOATE 25 MG CAPSULE (FP) PO PRN (20:24)
[2019-12-02] MEDS ORDERED: MAGNESIUM HYDROX 2400MG/30ML ORAL SUSPENSION 30 ML CUP PO PRN (20:24)
[2019-12-02] MEDS ORDERED: chlordiazePOXIDE HCL 25 MG CAPSULE PO PRN (20:24)
[2019-12-02] MEDS ORDERED: IBUPROFEN 400 MG TABLET (FP) PO PRN (20:24)
[2019-12-02] MEDS: THIAMINE HCL 100 MG TABLET (FP) PO SCH (22:57)
[2019-12-02] MEDS: chlordiazePOXIDE HCL 25 MG CAPSULE PO SCH (22:57)
[2019-12-02] MEDS: MELATONIN 5 MG TABLETS PO SCH (22:58)
[2019-12-03] MEDS: chlordiazePOXIDE HCL 25 MG CAPSULE PO SCH ×4 (05:13→22:41)
[2019-12-03 09:17] LABS: HEMATOCRIT 37.9 % (35.4-49); HEMOGLOBIN 12.5 GM/dL (11.7-16.9); MCH 29.9 pg (25.7-33.7); MCHC 32.9 g/dl (32.0-35.9); MEAN CELL VOLUME 90.9 fl (80-96); MEAN PLT VOLUME 8.7 fl (7.5-11.1); PLATELET COUNT 233 K/MM3 (134-434); RBC 4.17 M/mm3 (4.00-5.60); RDW 16.2 % (11.9-15.9); WHITE BLOOD COUNT 6.5 K/mm3 (4.0-10.0)
[2019-12-03 09:30] LABS: ALBUMIN 3.2 g/dl (3.4-5.0); BLOOD UREA NITROGEN 15.6 mg/dL (7-18); CALCIUM 8.8 mg/dL (8.5-10.1); CREATININE 0.9 mg/dL (0.55-1.3); POTASSIUM 3.9 mmol/L (3.5-5.1)
[2019-12-03 09:34] LABS: BILIRUBIN,TOTAL 0.5 mg/dL (0.2-1); TOT PROT 6.8 g/dl (6.4-8.2)
[2019-12-03] MEDS: amLODIPine BESYLATE 5 MG TABLET (FP) PO SCH (10:43)
[2019-12-03] MEDS: PRENATAL VITAMINS W/ FOLIC ACID TABLET (FP) PO SCH (10:43)
[2019-12-03] MEDS: NICOTINE 21 MG/24 HOURS TOPICAL PATCH TD SCH (10:43)
--- NOTE | 2019-12-03 13:43 | PN ---
[facility] CIWA - CIWA Score Nausea/Vomitin-No Nausea/No Vomiting Muscle Tremors: 3 Anxiety: 3 Agitation: 2 Paroxysmal Sweats: 3 Orientation: 0-Oriented Tacttile Disturbances: 0-None Auditory Disturbances: 1-Very Mild Visual Disturbances: 0-None Headache: 0-None Present CIWA-Ar Total Score: 12 S Progress Note (SOAP) Subjective: Complaints of anxiety, tremors, agitation, sweats, and noise sensitivity. Objective: 12/03/19 13:41 Vital Signs 12/03/19 12/03/19 09: 12:30 Temperature 97.9 F 98.4 F Pulse Rate 81 72 Respiratory 19 20 Rate Blood Pressure 147/87 133/67 O2 Sat by Pulse 99 99 Oximetry (%) Laboratory Last Values WBC 6.5 K/mm3 (4.0-10.0) 12/03/19 07:45 RBC 4.17 M/mm3 (4.00-5.60) 12/03/19 07:45 Hgb 12.5 GM/dL (11.7-16.9) 12/03/19 07:45 Hct 37.9 % (35.4-49) 12/03/19 07:45 MCV 90.9 fl (80-96) 12/03/19 07:45 MCH 29.9 pg (25.7-33.7) 12/03/19 07:45 MCHC 32.9 g/dl (32.0-35.9) 12/03/19 07:45 RDW 16.2 % (11.9-15.9) H 12/03/19 07:45 Plt Count 233 K/MM3 (134-434) D 12/03/19 07:45 MPV 8.7 fl (7.5-11.1) 12/03/19 07:45 Sodium 139 mmol/L (136-145) 12/03/19 07:45 Potassium 3.9 mmol/L (3.5-5.1) 12/03/19 07:45 Chloride 104 mmol/L (98-107) 12/03/19 07:45 Carbon Dioxide 29 mmol/L (21-32) 12/03/19 07:45 Anion Gap 6 MMOL/L (8-16) L 12/03/19 07:45 BUN 15.6 mg/dL (7-18) 12/03/19 07:45 Creatinine 0.9 mg/dL (0.55-1.3) 12/03/19 07:45 Est GFR (CKD-EPI)AfAm 119.13 12/03/19 07:45 Est GFR (CKD-EPI)NonAf 102.79 12/03/19 07:45 Random Glucose 75 mg/dL (74-106) 12/03/19 07:45 Calcium 8.8 mg/dL (8.5-10.1) 12/03/19 07:45 Total Bilirubin 0.5 mg/dL (0.2-1) 12/03/19 07:45 AST 32 U/L (15-37) 12/03/19 07:45 ALT 41 U/L (13-61) 12/03/19 07:45 Alkaline Phosphatase 75 U/L (45-117) 12/03/19 07:45 Total Protein 6.8 g/dl (6.4-8.2) 12/03/19 07:45 Albumin 3.2 g/dl (3.4-5.0) L 12/03/19 07:45 Syphilis Serology Reactive (NONREACTIVE) A* 12/03/19 07:45 Labs noted with reactive syphilis serology,pending titer. 12/03/19 14:31 Assessment: 12/03/19 13:42 Alert and oriented x 3, in no acute respiratory distress. Full ROM, ambulating in unit without assistance. Skin warm to touch without any lesions. Withdrawal symptoms. Reactive syphilis serology, pending titer. Patient was treated for syphilis in 2012. 12/03/19 14:32 Plan: Continue detox protocol.
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
[2019-12-03] MEDS ORDERED: MIRTAZAPINE 15 MG TABLET (FP) PO SCH (22:00)
[2019-12-03] MEDS: BENZTROPINE MESYLATE 0.5 MG TABLET (FP) PO SCH (22:41)
[2019-12-03] MEDS: THIAMINE HCL 100 MG TABLET (FP) PO SCH (22:41)
[2019-12-03] MEDS: risperiDONE 1 MG TABLET PO SCH (22:41)
[2019-12-03] MEDS: MELATONIN 5 MG TABLETS PO SCH (22:42)
[2019-12-04] MEDS: chlordiazePOXIDE HCL 25 MG CAPSULE PO SCH ×3 (06:25→17:52)
[2019-12-04] MEDS: NICOTINE 21 MG/24 HOURS TOPICAL PATCH TD SCH (10:21)
[2019-12-04] MEDS: PRENATAL VITAMINS W/ FOLIC ACID TABLET (FP) PO SCH (10:22)
[2019-12-04] MEDS: risperiDONE 1 MG TABLET PO SCH (10:22)
[2019-12-04] MEDS: BENZTROPINE MESYLATE 0.5 MG TABLET (FP) PO SCH (10:22)
[2019-12-04] MEDS: amLODIPine BESYLATE 5 MG TABLET (FP) PO SCH (10:22)
--- NOTE | 2019-12-04 14:28 | PN ---
S CIWA - CIWA Score Nausea/Vomitin-Mild Nausea/No Vomiting Muscle Tremors: 2 Anxiety: 2 Agitation: 2 Paroxysmal Sweats: 2 Orientation: 0-Oriented Tacttile Disturbances: 0-None Auditory Disturbances: 0-None Visual Disturbances: 0-None Headache: 0-None Present CIWA-Ar Total Score: 9 BHS Progress Note (SOAP) Subjective: Feels ok Objective: 12/04/19 14:23 Last Vital Signs Temp Pulse Resp BP Pulse Ox 97.6 F 104 H 17 144/89 96 12/04/19 12:25 12/04/19 12:25 12/04/19 12:25 12/04/19 12:25 12/04/19 12:25 Elevated b/p: has htn, on medication Mild tachycardia: most likely due to withdrawal Laboratory Tests 12/02/19 12/03/19 12/03/19 20:25 07:45 07:45 WBC 6.5 RBC 4.17 Hgb 12.5 Hct 37.9 MCV 90.9 MCH 29.9 MCHC 32.9 RDW 16.2 H Plt Count 233 D MPV 8.7 Sodium Potassium Chloride Carbon Dioxide Anion Gap BUN Creatinine Est GFR (CKD-EPI)AfAm Est GFR (CKD-EPI)NonAf Random Glucose Calcium Total Bilirubin AST ALT Alkaline Phosphatase Total Protein Albumin Syphilis Serology Reactive A* RPR Titer COVID-19 (SUAD) Not detected 12/03/19 12/03/19 07:45 07:45 WBC RBC Hgb Hct MCV MCH MCHC RDW Plt Count MPV Sodium 139 Potassium 3.9 Chloride 104 Carbon Dioxide 29 Anion Gap 6 L BUN 15.6 Creatinine 0.9 Est GFR (CKD-EPI)AfAm 119.13 Est GFR (CKD-EPI)NonAf 102.79 Random Glucose 75 Calcium 8.8 Total Bilirubin 0.5 AST 32 ALT 41 Alkaline Phosphatase 75 Total Protein 6.8 Albumin 3.2 L Syphilis Serology RPR Titer Reactive 1:1 H COVID-19 (SUAD) Labs reviewed: h/o syphilis (treated in 2012, asymptomatic), mild hypoalbuminemia noted Assessment: 12/04/19 14:25 Withdrawal sxs HTN, Mild tachycardia and hypoalbuminemia noted Plan: Continue detox Encourage PO water intake HTN: monitor b/p, continue medication Tachycardia: most likely withdrawal related, continue detox regimen, monitor VS Hypoalbuminemia: encourage diet
[2019-12-04 18:52] VITALS: BP 146/87; PULSE 97; TEMP 96.2
--- NOTE | 2019-12-04 20:47 | DS ---
[facility] Detox Discharge Summary Admission Date: 12/02/19 Discharge Date: 12/04/19 - History Additional Comments: Patient walked off the floor before he could be evaluated by a provider. As per his nurse, Ms. Lacie Israel, patient wanted to bulk picker something from his property with security downstairs and he was told to wait when someone can take him downstairs because it was medication time. Patient became upset, aggressive, disruptive and walked off the floor. Nurse reports that she notified the supervisor evaporator and security. Pertinent Past History: Alcohol dependence Asthma Hypertension Bipolar disorder Schizophrenia Insomnia Nicotine dependence Depression Anxiety History of syphilis - Physical Exam Results Vital Signs: Vital Signs Temperature 96.2 F L 12/04/19 16:56 Pulse Rate 97 H 12/04/19 16:56 Respiratory Rate 18 12/04/19 16:56 Blood Pressure 146/87 12/04/19 16:56 O2 Sat by Pulse Oximetry (%) 96 12/04/19 12:25 Laboratory Last Values WBC 6.5 K/mm3 (4.0-10.0) 12/03/19 07:45 RBC 4.17 M/mm3 (4.00-5.60) 12/03/19 07:45 Hgb 12.5 GM/dL (11.7-16.9) 12/03/19 07:45 Hct 37.9 % (35.4-49) 12/03/19 07:45 MCV 90.9 fl (80-96) 12/03/19 07:45 MCH 29.9 pg (25.7-33.7) 12/03/19 07:45 MCHC 32.9 g/dl (32.0-35.9) 12/03/19 07:45 RDW 16.2 % (11.9-15.9) H 12/03/19 07:45 Plt Count 233 K/MM3 (134-434) D 12/03/19 07:45 MPV 8.7 fl (7.5-11.1) 12/03/19 07:45 Sodium 139 mmol/L (136-145) 12/03/19 07:45 Potassium 3.9 mmol/L (3.5-5.1) 12/03/19 07:45 Chloride 104 mmol/L (98-107) 12/03/19 07:45 Carbon Dioxide 29 mmol/L (21-32) 12/03/19 07:45 Anion Gap 6 MMOL/L (8-16) L 12/03/19 07:45 BUN 15.6 mg/dL (7-18) 12/03/19 07:45 Creatinine 0.9 mg/dL (0.55-1.3) 12/03/19 07:45 Est GFR (CKD-EPI)AfAm 119.13 12/03/19 07:45 Est GFR (CKD-EPI)NonAf 102.79 12/03/19 07:45 Random Glucose 75 mg/dL (74-106) 12/03/19 07:45 Calcium 8.8 mg/dL (8.5-10.1) 12/03/19 07:45 Total Bilirubin 0.5 mg/dL (0.2-1) 12/03/19 07:45 AST 32 U/L (15-37) 12/03/19 07:45 ALT 41 U/L (13-61) 12/03/19 07:45 Alkaline Phosphatase 75 U/L (45-117) 12/03/19 07:45 Total Protein 6.8 g/dl (6.4-8.2) 12/03/19 07:45 Albumin 3.2 g/dl (3.4-5.0) L 12/03/19 07:45 Syphilis Serology Reactive (NONREACTIVE) A* 12/03/19 07:45 RPR Titer Reactive 1:1 (NONREACTIVE) H 12/03/19 07:45 COVID-19 (SUAD) Not detected (Not Detected) 12/02/19 20:25 Pertinent Admission Physical Exam Findings: Alcohol withdrawal symptoms - Medication Discharge Medications: Ambulatory Orders Quetiapine Fumarate [Seroquel -] 100 mg PO HS 06/23/18 Amlodipine Besylate [Norvasc -] 5 mg PO DAILY #30 tablet 07/20/18 Mirtazapine [Remeron -] 30 mg PO DAILY #30 tablet 07/20/18 Benztropine Mesylate [Cogentin -] 1 mg PO BID 11/14/19 Risperidone [Risperdal] 1 mg PO HS 11/14/19 - Diagnosis (1) Bipolar disorder Current Visit: Yes Status: Chronic Qualifiers: Current bipolar episode type: depressed (2) Asthma Current Visit: Yes Status: Chronic Qualifiers: Asthma severity: mild Asthma persistence: intermittent (3) Depression Current Visit: Yes Status: Chronic Qualifiers: Depression Type: unspecified Qualified Code(s): F32.9 - Major depressive disorder, single episode, unspecified (4) Anxiety Current Visit: Yes Status: Chronic (5) Alcohol abuse with intoxication, uncomplicated Current Visit: Yes Status: Chronic (6) Nicotine dependence Current Visit: Yes Status: Chronic Qualifiers: Nicotine product type: cigarettes Substance use status: uncomplicated Qualified Code(s): F17.210 - Nicotine dependence, cigarettes, uncomplicated (7) Hypertension Current Visit: Yes Status: Chronic Qualifiers: Hypertension type: essential hypertension Qualified Code(s): I10 - Essential (primary) hypertension (8) Insomnia Current Visit: Yes Status: Chronic (9) Schizophrenia Current Visit: Yes Status: Chronic (10) Syphilis contact, treated Current Visit: No Status: Chronic - AMA Did Patient Leave Against Medical Advice: Yes
[2019-12-05] MEDS ORDERED: chlordiazePOXIDE HCL 10 MG CAPSULE PO PRN
[2019-12-05] MEDS ORDERED: chlordiazePOXIDE HCL 10 MG CAPSULE PO SCH (05:00)
[2019-12-06] MEDS ORDERED: chlordiazePOXIDE HCL 10 MG CAPSULE PO SCH (05:00)
[2019-12-07] MEDS ORDERED: chlordiazePOXIDE HCL 10 MG CAPSULE PO ONE (05:00)
== END 2019-12-04 20:40 | disposition left against medical advice (07) | DRG 770 ==
LOC: YASAS 17:11 → Y6N 20:16
PROVIDERS: ADMIT Allergy & Immunology; ATTEND Allergy & Immunology
PROC: HZ2ZZZZ Detoxification Services for Substance Abuse Treatment (ICD-10-PCS; principal; 2019-12-02)
DX: F10.230 Alcohol dependence with withdrawal, uncomplicated (principal); F17.210 Nicotine dependence, cigarettes, uncomplicated; F20.9 Schizophrenia, unspecified; F19.24 Other psychoactive substance dependence with psychoactive substance-induced mood disorder; F31.9 Bipolar disorder, unspecified; F41.9 Anxiety disorder, unspecified; G47.00 Insomnia, unspecified; I10 Essential (primary) hypertension; J45.20 Mild intermittent asthma, uncomplicated; E88.09 Other disorders of plasma-protein metabolism, not elsewhere classified; R00.0 Tachycardia, unspecified; Z86.19 Personal history of other infectious and parasitic diseases; Z90.79 Acquired absence of other genital organ(s); Z91.5 Personal history of self-harm; Z91.410 Personal history of adult physical and sexual abuse; Z56.0 Unemployment, unspecified; Z59.0 Homelessness; Z88.0 Allergy status to penicillin; Z91.19 Patient's noncompliance with other medical treatment and regimen
CPT/HCPCS: 36415; 80053; 85027; 86593; 86780; J2794; U0003

== ENCOUNTER 2019-12-19 11:38 | Inpatient (IN) | payer OTHER ==
--- NOTE | 2019-12-19 11:55 | BHS.RME ---
Substance Use & Tx History - Substance Use History Alcohol Substance amount: 4 pints vodka Frequency of use: Daily Substance route: Oral Date of Last Use: 12/18/19 Nicotine Substance amount: 1 pack Frequency of use: Daily Substance route: Smoking Physical/Psych/Mental Status - Behavior General Behavior: Increased activity (restlessness, agitation) Eye Contact: Normal - Cooperativeness Cooperativeness: Cooperative - Thinking Thought Processes: Tight, Logical, Goal Directed - Physical Health Problems Is patient presently having any pain?: No Does patient presently have any injuries (include location): No Does patient currently have a fever: No Is patient : No CIWA Nausea/Vomitin Muscle Tremors: 4-Moderate,w/Arms Extend Anxiety: 3 Agitation: 3 Paroxysmal Sweats: 4-Forehead w/Sweat Beads Orientation: 0-Oriented Tacttile Disturbances: 0-None Auditory Disturbances: 0-None Visual Disturbances: 0-None Headache: 0-None Present CIWA-Ar Total Score: 16
--- NOTE | 2019-12-19 12:27 | HP ---
CIWA Score Nausea/Vomitin Muscle Tremors: 4-Moderate,w/Arms Extend Anxiety: 3 Agitation: 3 Paroxysmal Sweats: 4-Forehead w/Sweat Beads Orientation: 0-Oriented Tacttile Disturbances: 0-None Auditory Disturbances: 0-None Visual Disturbances: 0-None Headache: 0-None Present CIWA-Ar Total Score: 16 - Admission Criteria OASAS Guidelines: Admission for Medically Managed Detox: Requires at least one of the followin. CIWA greater than 12 2. Seizures within the past 24 hours 3. Delirium tremens within the past 24 hours 4. Hallucinations within the past 24 hours 5. Acute intervention needed for co occurring medical disorder 6. Acute intervention needed for co occurring psychiatric disorder 7. Severe withdrawal that cannot be handled at a lower level of care (continued vomiting, continued diarrhea, abnormal vital signs) requiring intravenous medication and/or fluids 8. Admitting History and Physical - Smoking History Smoking history: Current every day smoker Have you smoked in the past 12 months: Yes Aproximately how many cigarettes per day: 20 - Alcohol/Substance Use Hx Alcohol Use: Yes Admission ROS [facility] - [facility] Chief Complaint: " I got a problem. I need help." Allergies/Adverse Reactions: Allergies Allergy/AdvReac Type Severity Reaction Status Date / Time Penicillins Allergy Severe Hives Verified 12/19/19 12:52 History of Present Illness: 44 year old male with history of alcohol dependence with withdrawals. 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 Nicotine Substance amount: 1 pack Frequency of use: Daily Substance route: Smoking PMH: Asthma, HTN Psurg: None Psych: Bipolar, Schizophrenia He is homeless an dliving on the streets. Exam Limitations: No Limitations - Ebola screening Have you traveled outside of the country in the last 21 days: No Have you had contact with anyone from an Ebola affected area: No Have you been sick,other than usual withdrawal symptoms: No Do you have a fever: No - Review of Systems Constitutional: Chills, Diaphoresis EENT: reports: No Symptoms Reported Respiratory: reports: No Symptoms reported Cardiac: reports: No Symptoms Reported GI: reports: No Symptoms Reported : reports: No Symptoms Reported Musculoskeletal: reports: No Symptoms Reported Integumentary: reports: No Symptoms Reported Neuro: reports: Headache, Tingling, Tremors Endocrine: reports: No Symptoms Reported Hematology: reports: No Symptoms Reported Psychiatric: reports: Judgement Intact, Mood/Affect Appropiate, Orientated x3, Agitated, Anxious Other Systems: Reviewed and Negative Patient History - Patient Medical History Hx Anemia: No Hx Asthma: No Hx Chronic Obstructive Pulmonary Disease (COPD): No Hx Cancer: No Hx Cardiac Disorders: No Hx Congestive Heart Failure: No Hx Hypertension: Yes (Novasc) Hx Hypercholesterolemia: No Hx Pacemaker: No HX Cerebrovascular Accident: No Hx Seizures: No Hx Dementia: No Hx Diabetes: No Hx Gastrointestinal Disorders: No Hx Liver Disease: No Hx Genitourinary Disorders: No Hx Sexually Transmitted Disorders: Yes (Syphilis in 2012 treated) Hx Renal Disease (ESRD): No Hx Thyroid Disease: No Hx Human Immunodeficiency Virus (HIV): No (Negative 07/02 ) Hx Hepatitis C: No Hx Depression: Yes Hx Suicide Attempt: Yes [place]. Denies suicidal ideatyion at this time) Hx Bipolar Disorder: Yes Hx Schizophrenia: Yes - Patient Surgical History Past Surgical History: Yes Hx Neurologic Surgery: No Hx Cataract Extraction: No Hx Cardiac Surgery: No Hx Lung Surgery: No Hx Breast Surgery: No Hx Breast Biopsy: No Hx Abdominal Surgery: No Hx Appendectomy: No Hx Cholecystectomy: No Hx Genitourinary Surgery: No Hx Section: No Hx Orthopedic Surgery: No Other Surgical History: left orchidectomy left at childhood,torsion? Anesthesia Reaction: No - PPD History Previous Implant?: Yes Documented Results: Negative w/proof Implanted On Prior [facility] Admission?: Yes Date: 11/16/19 Results: 0mm PPD to be Administered?: No - Smoking Cessation Smoking history: Current every day smoker Have you smoked in the past 12 months: Yes Aproximately how many cigarettes per day: 20 Cigars Per Day: 0 Hx Chewing Tobacco Use: No Initiated information on smoking cessation: Yes 'Breaking Loose' booklet given: 12/19/19 - Substances abused Alcohol Substance route: Oral Frequency: Daily Amount used: 4 pints vodka Age of first use: 13 Date of last use: 12/18/19 Admission Physical Exam BHS - Physical General Appearance: Yes: Moderate Distress, Thin, Tremorous, Irritable, Sweating , Anxious HEENTM: Yes: EOMI, Hearing grossly Normal, Normal ENT Inspection, Normocephalic, Normal Voice, JAZIEL, Pharynx Normal, Tm's normal Respiratory: Yes: Chest Non-Tender, Lungs Clear, Normal Breath Sounds, No Respiratory Distress, No Accessory Muscle Use Neck: Yes: No masses,lesions,Nodules, Supple, Trachea in good position Breast: Yes: Within Normal Limits Cardiology: Yes: Regular Rhythm, Regular Rate, S1, S2 Abdominal: Yes: Normal Bowel Sounds, Non Tender, Flat, Soft Genitourinary: Yes: Within Normal Limits Back: Yes: Normal Inspection Musculoskeletal: Yes: full range of Motion, Gait Steady, Pelvis Stable Extremities: Yes: Normal Capillary Refill, Normal Inspection, Normal Range of Motion, Non-Tender Neurological: Yes: 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 intact, Fully Oriented, Alert, Motor Strength 5/5, Normal Mood/Affect, Normal Response Integumentary: Yes: Normal Color, Dry, Warm Lymphatic: Yes: Within Normal Limits - Diagnostic (1) Alcohol abuse with intoxication, uncomplicated Current Visit: Yes Status: Chronic (2) Anxiety Current Visit: Yes Status: Chronic (3) Asthma Current Visit: Yes Status: Chronic Qualifiers: Asthma severity: mild Asthma persistence: intermittent (4) Insomnia Current Visit: Yes Status: Chronic (5) Nicotine dependence Current Visit: Yes Status: Chronic Qualifiers: Nicotine product type: cigarettes Substance use status: uncomplicated Qualified Code(s): F17.210 - Nicotine dependence, cigarettes, uncomplicated (6) Non-compliance Current Visit: Yes Status: Chronic (7) Schizophrenia Current Visit: Yes Status: Chronic Comment: As per self-report. Patient is on medication (risperidone). Cleared for Admission [facility] - Detox or Rehab [facility] Level of Care: Medically Managed Detox Regimen/Protocol: Librium Claeared for Rehab Admission: No Screened but not Admitted - Documentation of Visit Screened but not Admitted: No Breathalyzer - Breathalyzer Breathalyzer: 0.074 Urine Drug Screen - Test Device Lot number: [id number] Expiration date: 10/17/21 - Control Is test valid?: Yes - Results Drug screen NEGATIVE: No Urine drug screen results: BZO-Benzodiazepines Inpatient Rehab Admission - Rehab Decision to Admit Inpatient rehab admission?: No
[2019-12-19 12:30] VITALS: BMI 26.3
[2019-12-19] MEDS ORDERED: chlordiazePOXIDE HCL 25 MG CAPSULE ONE (12:31)
[2019-12-19] MEDS ORDERED: MAGNESIUM HYDROX 2400MG/30ML ORAL SUSPENSION 30 ML CUP PO PRN (12:32)
[2019-12-19] MEDS ORDERED: ACETAMINOPHEN 325 MG TABLET (FP) PO PRN ×2 (12:32)
[2019-12-19] MEDS ORDERED: IBUPROFEN 400 MG TABLET (FP) PO PRN (12:32)
[2019-12-19] MEDS ORDERED: chlordiazePOXIDE HCL 25 MG CAPSULE PO PRN (12:32)
[2019-12-19] MEDS ORDERED: MAG HYDROX/AL HYDROX/SIMETH 30 ML UNIT-DOSE CUP PO PRN (12:32)
[2019-12-19] MEDS ORDERED: ONDANSETRON *ODT* 4 MG TABLET SL PRN (12:32)
[2019-12-19] MEDS ORDERED: NICOTINE POLACRILEX 2 MG GUM BUC PRN (12:32)
[2019-12-19] MEDS ORDERED: MENTHOL/PHENOL 1 EACH UD MM PRN (12:32)
[2019-12-19] MEDS ORDERED: MAGNESIUM CITRATE 300 ML BOTTLE PO PRN (12:32)
[2019-12-19] MEDS ORDERED: BISMUTH SUBSALICYLATE 262 MG/15 ML BTL PO PRN (12:32)
[2019-12-19] MEDS ORDERED: METHOCARBAMOL 500 MG TABLET PO PRN (12:32)
[2019-12-19] MEDS ORDERED: chlordiazePOXIDE HCL 25 MG CAPSULE PO ONE (12:35)
[2019-12-19] MEDS: PRENATAL VITAMINS W/ FOLIC ACID TABLET (FP) PO SCH (14:24)
[2019-12-19] MEDS: NICOTINE 7 MG/24 HOURS TOPICAL PATCH TD SCH (14:24)
[2019-12-19] MEDS: chlordiazePOXIDE HCL 25 MG CAPSULE PO SCH ×3 (15:25→22:19)
[2019-12-19] MEDS: hydrOXYzine PAMOATE 25 MG CAPSULE (FP) PO SCH ×3 (15:25→22:19)
[2019-12-19 18:06] LABS: HEMOGLOBIN 12.3 GM/dL (11.7-16.9); MCH 31.2 pg (25.7-33.7); MEAN CELL VOLUME 91.7 fl (80-96); MEAN PLT VOLUME 8.3 fl (7.5-11.1); PLATELET COUNT 268 K/MM3 (134-434); RBC 3.92 M/mm3 (4.00-5.60); RDW 15.9 % (11.9-15.9); WHITE BLOOD COUNT 5.5 K/mm3 (4.0-10.0)
[2019-12-19 18:21] LABS: ALBUMIN 3.7 g/dl (3.4-5.0); BILIRUBIN,TOTAL 0.2 mg/dL (0.2-1); CALCIUM 8.5 mg/dL (8.5-10.1); CREATININE 0.9 mg/dL (0.55-1.3); POTASSIUM 3.9 mmol/L (3.5-5.1); TOT PROT 7.4 g/dl (6.4-8.2)
[2019-12-19] MEDS: MELATONIN 5 MG TABLETS PO SCH (22:19)
[2019-12-19] MEDS: THIAMINE HCL 100 MG TABLET (FP) PO SCH (22:19)
[2019-12-20] MEDS: hydrOXYzine PAMOATE 25 MG CAPSULE (FP) PO SCH ×5 (06:17→23:00)
[2019-12-20] MEDS: chlordiazePOXIDE HCL 25 MG CAPSULE PO SCH ×4 (06:17→23:01)
--- NOTE | 2019-12-20 10:11 | PN ---
S CIWA - CIWA Score Nausea/Vomitin-Mild Nausea/No Vomiting Muscle Tremors: 2 Anxiety: 2 Agitation: 1-Slight > Activity Paroxysmal Sweats: 1-Minimal Palms Moist Orientation: 0-Oriented Tacttile Disturbances: 1-Very Mild Itch/Numbness Auditory Disturbances: 0-None Visual Disturbances: 2-Mild Sensitivity Headache: 2-Mild CIWA-Ar Total Score: 12 BHS Progress Note (SOAP) Subjective: 44 years old male was admitted on 12/19/19 for alcohol withdrawal sx management treating with librium detox regiment feels tired resting in bed prefers to stay in bed longer encourage mr marx to discuss aftercare plan with staff Objective: 12/20/19 10:22 Vital Signs - 24 hr 12/19/19 12/19/19 12/19/19 12:28 12:46 13:24 Temperature 98.1 F 83 F L Pulse Rate 92 H 83 Respiratory 18 18 Rate Blood Pressure 171/101 H 143/94 O2 Sat by Pulse 99 98 Oximetry (%) 12/19/19 12/19/19 12/19/19 17:23 20:34 23:24 Temperature 97.8 F 97.5 F L Pulse Rate 77 58 L 60 Respiratory 16 16 Rate Blood Pressure 158/89 152/98 133/87 O2 Sat by Pulse 98 97 Oximetry (%) 12/20/19 12/20/19 06:30 09:03 Temperature 97.8 F 97.7 F Pulse Rate 60 74 Respiratory 18 20 Rate Blood Pressure 136/86 130/89 O2 Sat by Pulse 97 Oximetry (%) Laboratory Tests 12/19/19 12/19/19 12/19/19 12:40 12:40 12:40 WBC 5.5 RBC 3.92 L Hgb 12.3 Hct 36.0 MCV 91.7 MCH 31.2 MCHC 34.0 RDW 15.9 Plt Count 268 MPV 8.3 Sodium 143 Potassium 3.9 Chloride 108 H Carbon Dioxide 28 Anion Gap 7 L BUN 15.0 Creatinine 0.9 Est GFR (CKD-EPI)AfAm 119.13 Est GFR (CKD-EPI)NonAf 102.79 Random Glucose 102 Calcium 8.5 Total Bilirubin 0.2 AST 73 H ALT 61 Alkaline Phosphatase 78 Total Protein 7.4 Albumin 3.7 Syphilis Serology Reactive A* RPR Titer HIV Ag/Ab Combo Qual 12/19/19 12/19/19 12:40 12:40 WBC RBC Hgb Hct MCV MCH MCHC RDW Plt Count MPV Sodium Potassium Chloride Carbon Dioxide Anion Gap BUN Creatinine Est GFR (CKD-EPI)AfAm Est GFR (CKD-EPI)NonAf Random Glucose Calcium Total Bilirubin AST ALT Alkaline Phosphatase Total Protein Albumin Syphilis Serology RPR Titer Reactive 1:1 H HIV Ag/Ab Combo Qual Negative 12/20/19 10:26 syphilis contacted treated Assessment: 12/20/19 10:27 alcohol withdrawal Plan: librium regiment
[2019-12-20] MEDS: NICOTINE 7 MG/24 HOURS TOPICAL PATCH TD SCH (10:37)
[2019-12-20] MEDS: PRENATAL VITAMINS W/ FOLIC ACID TABLET (FP) PO SCH (10:37)
[2019-12-20] MEDS: amLODIPine BESYLATE 5 MG TABLET (FP) PO SCH (10:37)
[2019-12-20] MEDS ORDERED: FLU VACCINE (FLULAVAL) PF 60 MCG/0.5 ML SYRINGE 2020-2021 IM ONE (12:00)
[2019-12-20] MEDS ORDERED: PNEUMOC 13-VAL CONJ-DIP CRM/PF 0.5 ML DISP.SYRIN IM ONE (12:00)
[2019-12-20] MEDS ORDERED: PNEUMOCOCCAL 23 VACCINE 0.5 ML VIAL IM ONE (12:00)
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
[2019-12-20] MEDS ORDERED: BENZTROPINE MESYLATE 0.5 MG TABLET (FP) PO SCH (22:00)
[2019-12-20] MEDS ORDERED: chlordiazePOXIDE HCL 25 MG CAPSULE ONE (22:00)
[2019-12-20] MEDS: risperiDONE 1 MG TABLET PO SCH (23:00)
[2019-12-20] MEDS: MIRTAZAPINE 15 MG TABLET (FP) PO SCH (23:00)
[2019-12-20] MEDS: MELATONIN 5 MG TABLETS PO SCH (23:00)
[2019-12-20] MEDS: THIAMINE HCL 100 MG TABLET (FP) PO SCH (23:01)
[2019-12-21] MEDS: hydrOXYzine PAMOATE 25 MG CAPSULE (FP) PO SCH ×5 (06:25→22:49)
[2019-12-21] MEDS: chlordiazePOXIDE HCL 25 MG CAPSULE PO SCH ×4 (06:25→22:46)
[2019-12-21] MEDS: PRENATAL VITAMINS W/ FOLIC ACID TABLET (FP) PO SCH (10:13)
[2019-12-21] MEDS: NICOTINE 7 MG/24 HOURS TOPICAL PATCH TD SCH (10:13)
[2019-12-21] MEDS: amLODIPine BESYLATE 5 MG TABLET (FP) PO SCH (10:13)
[2019-12-21] MEDS: risperiDONE 1 MG TABLET PO SCH ×2 (10:13→22:46)
[2019-12-21] MEDS: BENZTROPINE MESYLATE 1 MG TABLET PO SCH ×2 (10:13→22:46)
--- NOTE | 2019-12-21 16:17 | PN ---
S CIWA - CIWA Score Nausea/Vomitin-Mild Nausea/No Vomiting Muscle Tremors: 2 Anxiety: 2 Agitation: 2 Paroxysmal Sweats: 1-Minimal Palms Moist Orientation: 0-Oriented Tacttile Disturbances: 1-Very Mild Itch/Numbness Auditory Disturbances: 0-None Visual Disturbances: 0-None Headache: 2-Mild CIWA-Ar Total Score: 11 S Progress Note (SOAP) Subjective: alert,irritable,anxious,interrupted sleep,aching pain Objective: 12/21/19 16:16 Vital Signs Temperature 97.5 F L 12/21/19 12:53 Pulse Rate 77 12/21/19 12:53 Respiratory Rate 20 12/21/19 12:53 Blood Pressure 129/80 12/21/19 12:53 O2 Sat by Pulse Oximetry (%) 100 12/21/19 12:53 12/21/19 16:16 Laboratory Last Values WBC 5.5 K/mm3 (4.0-10.0) 12/19/19 12:40 RBC 3.92 M/mm3 (4.00-5.60) L 12/19/19 12:40 Hgb 12.3 GM/dL (11.7-16.9) 12/19/19 12:40 Hct 36.0 % (35.4-49) 12/19/19 12:40 MCV 91.7 fl (80-96) 12/19/19 12:40 MCH 31.2 pg (25.7-33.7) 12/19/19 12:40 MCHC 34.0 g/dl (32.0-35.9) 12/19/19 12:40 RDW 15.9 % (11.9-15.9) 12/19/19 12:40 Plt Count 268 K/MM3 (134-434) 12/19/19 12:40 MPV 8.3 fl (7.5-11.1) 12/19/19 12:40 Sodium 143 mmol/L (136-145) 12/19/19 12:40 Potassium 3.9 mmol/L (3.5-5.1) 12/19/19 12:40 Chloride 108 mmol/L (98-107) H 12/19/19 12:40 Carbon Dioxide 28 mmol/L (21-32) 12/19/19 12:40 Anion Gap 7 MMOL/L (8-16) L 12/19/19 12:40 BUN 15.0 mg/dL (7-18) 12/19/19 12:40 Creatinine 0.9 mg/dL (0.55-1.3) 12/19/19 12:40 Est GFR (CKD-EPI)AfAm 119.13 12/19/19 12:40 Est GFR (CKD-EPI)NonAf 102.79 12/19/19 12:40 Random Glucose 102 mg/dL (74-106) 12/19/19 12:40 Calcium 8.5 mg/dL (8.5-10.1) 12/19/19 12:40 Total Bilirubin 0.2 mg/dL (0.2-1) 12/19/19 12:40 AST 73 U/L (15-37) H 12/19/19 12:40 ALT 61 U/L (13-61) 12/19/19 12:40 Alkaline Phosphatase 78 U/L (45-117) 12/19/19 12:40 Total Protein 7.4 g/dl (6.4-8.2) 12/19/19 12:40 Albumin 3.7 g/dl (3.4-5.0) 12/19/19 12:40 Syphilis Serology Reactive (NONREACTIVE) A* 12/19/19 12:40 RPR Titer Reactive 1:1 (NONREACTIVE) H 12/19/19 12:40 COVID-19 (SUAD) Not detected (Not Detected) 12/20/19 12:47 HIV Ag/Ab Combo Qual Negative (NEGATIVE) 12/19/19 12:40 treated for syphilis in the past Assessment: 12/21/19 16:17 withdrawal symptom Plan: continue detox librium regimen
[2019-12-21] MEDS: THIAMINE HCL 100 MG TABLET (FP) PO SCH (22:46)
[2019-12-21] MEDS: MELATONIN 5 MG TABLETS PO SCH (22:47)
[2019-12-21] MEDS: MIRTAZAPINE 15 MG TABLET (FP) PO SCH (22:47)
[2019-12-22] MEDS ORDERED: chlordiazePOXIDE HCL 10 MG CAPSULE PO PRN
[2019-12-22] MEDS: chlordiazePOXIDE HCL 10 MG CAPSULE PO SCH ×4 (07:18→22:24)
[2019-12-22] MEDS: hydrOXYzine PAMOATE 25 MG CAPSULE (FP) PO SCH ×5 (07:19→22:24)
[2019-12-22] MEDS: risperiDONE 1 MG TABLET PO SCH ×2 (10:39→22:25)
[2019-12-22] MEDS: BENZTROPINE MESYLATE 1 MG TABLET PO SCH ×2 (10:39→22:24)
[2019-12-22] MEDS: amLODIPine BESYLATE 5 MG TABLET (FP) PO SCH (10:39)
[2019-12-22] MEDS: PRENATAL VITAMINS W/ FOLIC ACID TABLET (FP) PO SCH (10:40)
[2019-12-22] MEDS: NICOTINE 7 MG/24 HOURS TOPICAL PATCH TD SCH (10:40)
--- NOTE | 2019-12-22 13:38 | PN ---
S CIWA - CIWA Score Nausea/Vomitin-Mild Nausea/No Vomiting Muscle Tremors: 2 Anxiety: 2 Agitation: 1-Slight > Activity Paroxysmal Sweats: No Perspiration Orientation: 0-Oriented Tacttile Disturbances: 1-Very Mild Itch/Numbness Auditory Disturbances: 0-None Visual Disturbances: 0-None Headache: 1-Very Mild CIWA-Ar Total Score: 8 BHS Progress Note (SOAP) Subjective: alert,irritable,anxious,interrupted sleep,aching pain,ambulation on the unit Objective: 12/22/19 17:05 Vital Signs Temperature 97.9 F 12/22/19 12:39 Pulse Rate 109 H 12/22/19 12:39 Respiratory Rate 20 12/22/19 12:39 Blood Pressure 147/91 12/22/19 12:39 O2 Sat by Pulse Oximetry (%) 100 12/22/19 12:39 Laboratory Last Values WBC 5.5 K/mm3 (4.0-10.0) 12/19/19 12:40 RBC 3.92 M/mm3 (4.00-5.60) L 12/19/19 12:40 Hgb 12.3 GM/dL (11.7-16.9) 12/19/19 12:40 Hct 36.0 % (35.4-49) 12/19/19 12:40 MCV 91.7 fl (80-96) 12/19/19 12:40 MCH 31.2 pg (25.7-33.7) 12/19/19 12:40 MCHC 34.0 g/dl (32.0-35.9) 12/19/19 12:40 RDW 15.9 % (11.9-15.9) 12/19/19 12:40 Plt Count 268 K/MM3 (134-434) 12/19/19 12:40 MPV 8.3 fl (7.5-11.1) 12/19/19 12:40 Sodium 143 mmol/L (136-145) 12/19/19 12:40 Potassium 3.9 mmol/L (3.5-5.1) 12/19/19 12:40 Chloride 108 mmol/L (98-107) H 12/19/19 12:40 Carbon Dioxide 28 mmol/L (21-32) 12/19/19 12:40 Anion Gap 7 MMOL/L (8-16) L 12/19/19 12:40 BUN 15.0 mg/dL (7-18) 12/19/19 12:40 Creatinine 0.9 mg/dL (0.55-1.3) 12/19/19 12:40 Est GFR (CKD-EPI)AfAm 119.13 12/19/19 12:40 Est GFR (CKD-EPI)NonAf 102.79 12/19/19 12:40 Random Glucose 102 mg/dL (74-106) 12/19/19 12:40 Calcium 8.5 mg/dL (8.5-10.1) 12/19/19 12:40 Total Bilirubin 0.2 mg/dL (0.2-1) 12/19/19 12:40 AST 73 U/L (15-37) H 12/19/19 12:40 ALT 61 U/L (13-61) 12/19/19 12:40 Alkaline Phosphatase 78 U/L (45-117) 12/19/19 12:40 Total Protein 7.4 g/dl (6.4-8.2) 12/19/19 12:40 Albumin 3.7 g/dl (3.4-5.0) 12/19/19 12:40 Syphilis Serology Reactive (NONREACTIVE) A* 12/19/19 12:40 RPR Titer Reactive 1:1 (NONREACTIVE) H 12/19/19 12:40 COVID-19 (SUAD) Not detected (Not Detected) 12/20/19 12:47 HIV Ag/Ab Combo Qual Negative (NEGATIVE) 12/19/19 12:40 history of syphilis treated before Assessment: 12/22/19 17:06 withdrawal symptom Plan: continue detox librium regimen
[2019-12-22] MEDS: MIRTAZAPINE 15 MG TABLET (FP) PO SCH (22:24)
[2019-12-22] MEDS: MELATONIN 5 MG TABLETS PO SCH (22:25)
[2019-12-22] MEDS: THIAMINE HCL 100 MG TABLET (FP) PO SCH (22:26)
[2019-12-23] MEDS: hydrOXYzine PAMOATE 25 MG CAPSULE (FP) PO SCH ×4 (07:16→17:32)
[2019-12-23] MEDS: chlordiazePOXIDE HCL 10 MG CAPSULE PO SCH ×2 (07:16→17:32)
--- NOTE | 2019-12-23 10:10 | PN ---
S CIWA - CIWA Score Nausea/Vomitin-No Nausea/No Vomiting Muscle Tremors: 1-None Visible, but [place] Anxiety: 1-Mildly Anxious Agitation: 0-Normal Activity Paroxysmal Sweats: No Perspiration Orientation: 0-Oriented Tacttile Disturbances: 0-None Auditory Disturbances: 0-None Visual Disturbances: 0-None Headache: 0-None Present CIWA-Ar Total Score: 2 BHS Progress Note (SOAP) Subjective: Pt feeling well Objective: 12/23/19 10:06 PE Gnl: WDWN, in no distress MS: nl mentation Motor: moves limbs well Coord: nl Gait: steady Laboratory Tests 12/19/19 12/19/19 12/19/19 12:40 12:40 12:40 WBC 5.5 RBC 3.92 L Hgb 12.3 Hct 36.0 MCV 91.7 MCH 31.2 MCHC 34.0 RDW 15.9 Plt Count 268 MPV 8.3 Sodium 143 Potassium 3.9 Chloride 108 H Carbon Dioxide 28 Anion Gap 7 L BUN 15.0 Creatinine 0.9 Est GFR (CKD-EPI)AfAm 119.13 Est GFR (CKD-EPI)NonAf 102.79 Random Glucose 102 Calcium 8.5 Total Bilirubin 0.2 AST 73 H ALT 61 Alkaline Phosphatase 78 Total Protein 7.4 Albumin 3.7 Syphilis Serology Reactive A* RPR Titer COVID-19 (SUAD) HIV Ag/Ab Combo Qual 12/19/19 12/19/19 12/20/19 12:40 12:40 12:47 WBC RBC Hgb Hct MCV MCH MCHC RDW Plt Count MPV Sodium Potassium Chloride Carbon Dioxide Anion Gap BUN Creatinine Est GFR (CKD-EPI)AfAm Est GFR (CKD-EPI)NonAf Random Glucose Calcium Total Bilirubin AST ALT Alkaline Phosphatase Total Protein Albumin Syphilis Serology RPR Titer Reactive 1:1 H COVID-19 (SUAD) Not detected HIV Ag/Ab Combo Qual Negative 12/23/19 10:08 Vital Signs Temperature 98.4 F 12/23/19 09:04 Pulse Rate 82 12/23/19 09:04 Respiratory Rate 18 12/23/19 09:04 Blood Pressure 133/77 12/23/19 09:04 O2 Sat by Pulse Oximetry (%) 100 12/23/19 06:46 Assessment: 12/23/19 10:08 1. Alcohol withdrawal Plan: 1. Librium detox, projected completion 12/23, pt states he is going home
[2019-12-23] MEDS: risperiDONE 1 MG TABLET PO SCH (10:37)
[2019-12-23] MEDS: PRENATAL VITAMINS W/ FOLIC ACID TABLET (FP) PO SCH (10:37)
[2019-12-23] MEDS: amLODIPine BESYLATE 5 MG TABLET (FP) PO SCH (10:37)
[2019-12-23] MEDS: BENZTROPINE MESYLATE 1 MG TABLET PO SCH (10:38)
[2019-12-23] MEDS: NICOTINE 7 MG/24 HOURS TOPICAL PATCH TD SCH (10:38)
[2019-12-23 13:14] VITALS: BP 142/90; PULSE 94; TEMP 97.5
--- NOTE | 2019-12-23 16:33 | DS ---
[facility] Detox Discharge Summary Admission Date: 12/19/19 Discharge Date: 12/23/19 - History Present History: Alcohol Dependence - Physical Exam Results Vital Signs: Vital Signs Temperature 97.5 F L 12/23/19 12:35 Pulse Rate 94 H 12/23/19 12:35 Respiratory Rate 18 12/23/19 12:35 Blood Pressure 142/90 12/23/19 12:35 O2 Sat by Pulse Oximetry (%) 99 12/23/19 12:35 Pertinent Admission Physical Exam Findings: PE GnL: WDWN Mental status: nl mentation, pt aware of positive RPR, states he has been treated, no current penile lesions Motor: moves limbs well Coord: grossly nl Gait: steady Laboratory Tests 12/19/19 12/19/19 12/19/19 12:40 12:40 12:40 WBC 5.5 RBC 3.92 L Hgb 12.3 Hct 36.0 MCV 91.7 MCH 31.2 MCHC 34.0 RDW 15.9 Plt Count 268 MPV 8.3 Sodium 143 Potassium 3.9 Chloride 108 H Carbon Dioxide 28 Anion Gap 7 L BUN 15.0 Creatinine 0.9 Est GFR (CKD-EPI)AfAm 119.13 Est GFR (CKD-EPI)NonAf 102.79 Random Glucose 102 Calcium 8.5 Total Bilirubin 0.2 AST 73 H ALT 61 Alkaline Phosphatase 78 Total Protein 7.4 Albumin 3.7 Syphilis Serology Reactive A* RPR Titer COVID-19 (SUAD) HIV Ag/Ab Combo Qual 12/19/19 12/19/19 12/20/19 12:40 12:40 12:47 WBC RBC Hgb Hct MCV MCH MCHC RDW Plt Count MPV Sodium Potassium Chloride Carbon Dioxide Anion Gap BUN Creatinine Est GFR (CKD-EPI)AfAm Est GFR (CKD-EPI)NonAf Random Glucose Calcium Total Bilirubin AST ALT Alkaline Phosphatase Total Protein Albumin Syphilis Serology RPR Titer Reactive 1:1 H COVID-19 (SUAD) Not detected HIV Ag/Ab Combo Qual Negative - Treatment Hospital Course: Detox Protocol Followed, Detoxed Safely, Responded well, Discharged Condition Good Patient has Accepted a Rehab Referral to: Pt states he needs to go home for a family emergency. Medically stable - Medication Discharge Medications: Ambulatory Orders Quetiapine Fumarate [Seroquel -] 100 mg PO HS 06/23/18 Amlodipine Besylate [Norvasc -] 5 mg PO DAILY #30 tablet 07/20/18 Mirtazapine [Remeron -] 30 mg PO DAILY #30 tablet 07/20/18 Benztropine Mesylate [Cogentin -] 1 mg PO BID 11/14/19 Risperidone [Risperdal] 1 mg PO HS 11/14/19 - Diagnosis (1) Alcohol abuse with intoxication, uncomplicated Current Visit: Yes Status: Chronic - AMA Did Patient Leave Against Medical Advice: No
[2019-12-24] MEDS ORDERED: chlordiazePOXIDE HCL 10 MG CAPSULE PO ONE (05:00)
== END 2019-12-23 16:40 | disposition home or self-care (01) | DRG 775 ==
LOC: YASAS 11:38 → Y3N 12:45
PROVIDERS: ADMIT Allergy & Immunology; ATTEND Allergy & Immunology
PROC: HZ2ZZZZ Detoxification Services for Substance Abuse Treatment (ICD-10-PCS; principal; 2019-12-19)
DX: F10.230 Alcohol dependence with withdrawal, uncomplicated (principal); F17.210 Nicotine dependence, cigarettes, uncomplicated; F19.24 Other psychoactive substance dependence with psychoactive substance-induced mood disorder; F31.9 Bipolar disorder, unspecified; F20.9 Schizophrenia, unspecified; F41.9 Anxiety disorder, unspecified; I10 Essential (primary) hypertension; J45.20 Mild intermittent asthma, uncomplicated; G47.00 Insomnia, unspecified; A53.0 Latent syphilis, unspecified as early or late; Z90.79 Acquired absence of other genital organ(s); Z91.5 Personal history of self-harm; Z88.0 Allergy status to penicillin; Z56.0 Unemployment, unspecified; Z59.0 Homelessness
CPT/HCPCS: 36415; 80053; 85027; 86593; 86780; 87389; C9803; J2794; U0003

== ENCOUNTER 2020-07-28 16:51 | Inpatient (IN) | payer OTHER ==
[2020-07-28] MEDS ORDERED: IBUPROFEN 400 MG TABLET (FP) PO PRN (18:09)
[2020-07-28] MEDS ORDERED: ACETAMINOPHEN 325 MG TABLET (FP) PO PRN ×2 (18:09)
[2020-07-28] MEDS ORDERED: MAGNESIUM HYDROX 2400MG/30ML ORAL SUSPENSION 30 ML CUP PO PRN (18:09)
[2020-07-28] MEDS ORDERED: BISMUTH SUBSALICYLATE 524 MG/30 ML UD PO PRN (18:09)
[2020-07-28] MEDS ORDERED: MAG HYDROX/AL HYDROX/SIMETH 30 ML UNIT-DOSE CUP PO PRN (18:09)
[2020-07-28] MEDS ORDERED: ONDANSETRON *ODT* 4 MG TABLET SL PRN (18:09)
[2020-07-28] MEDS ORDERED: METHOCARBAMOL 500 MG TABLET PO PRN (18:09)
[2020-07-28] MEDS ORDERED: MAGNESIUM CITRATE 300 ML BOTTLE PO PRN (18:09)
[2020-07-28] MEDS ORDERED: MENTHOL/PHENOL 1 EACH UD MM PRN (18:09)
[2020-07-28] MEDS ORDERED: NICOTINE POLACRILEX 2 MG GUM BUC PRN (18:09)
[2020-07-28] MEDS ORDERED: cloNIDine HCL 0.1 MG TABLET PO ONE (18:30)
[2020-07-28 19:14] VITALS: BMI 28.8
[2020-07-29] MEDS: CLINDAMYCIN HCL 150 MG CAPSULE (FP) PO SCH ×4 (01:40→22:15)
[2020-07-29] MEDS: MELATONIN 5 MG TABLETS PO SCH ×2 (01:40→22:15)
[2020-07-29] MEDS: THIAMINE HCL 100 MG TABLET (FP) PO SCH ×2 (01:40→22:17)
[2020-07-29] MEDS: NICOTINE 14 MG/24 HOURS TOPICAL PATCH TD SCH (10:38)
[2020-07-29] MEDS: risperiDONE 1 MG TABLET PO SCH ×2 (10:38→22:17)
[2020-07-29] MEDS: BENZTROPINE MESYLATE 1 MG TABLET PO SCH ×2 (10:38→22:16)
[2020-07-29] MEDS: PRENATAL VITAMINS W/ FOLIC ACID TABLET (FP) PO SCH (10:38)
[2020-07-29 12:33] LABS: MCHC 33.5 g/dl (32.0-35.9); MEAN CELL VOLUME 89.5 fl (80-96); MEAN PLT VOLUME 8.6 fl (7.5-11.1); PLATELET COUNT 257 K/MM3 (134-434); RBC 4.35 M/mm3 (4.00-5.60); RDW 14.8 % (11.9-15.9); WHITE BLOOD COUNT 4.3 K/mm3 (4.0-10.0)
[2020-07-29 12:41] LABS: ALBUMIN 3.1 g/dl (3.4-5.0); CALCIUM 8.1 mg/dL (8.5-10.1)
[2020-07-29 12:46] LABS: BILIRUBIN,TOTAL 0.6 mg/dL (0.2-1); TOT PROT 6.2 g/dl (6.4-8.2)
[2020-07-29] MEDS ORDERED: MIRTAZAPINE 15 MG TABLET (FP) PO SCH (22:00)
[2020-07-30] MEDS: CLINDAMYCIN HCL 150 MG CAPSULE (FP) PO SCH (07:05)
[2020-07-30 09:07] VITALS: TEMP 96.9
[2020-07-30] MEDS: PRENATAL VITAMINS W/ FOLIC ACID TABLET (FP) PO SCH (10:30)
[2020-07-30] MEDS: risperiDONE 1 MG TABLET PO SCH (10:30)
[2020-07-30] MEDS: BENZTROPINE MESYLATE 1 MG TABLET PO SCH (10:30)
[2020-07-30] MEDS: NICOTINE 14 MG/24 HOURS TOPICAL PATCH TD SCH (10:30)
[2020-07-30 13:05] VITALS: BP 153/93; PULSE 96
== END 2020-07-30 13:08 | disposition home or self-care (01) | DRG 775 ==
LOC: YASAS 16:51 → Y3N 07-29 00:57 → UNDOADMIN 07-29 00:57 → Y3N 07-29 18:22 → UNDODISIN 07-30 13:08
PROVIDERS: ADMIT Allergy & Immunology; ATTEND Allergy & Immunology
PROC: HZ2ZZZZ Detoxification Services for Substance Abuse Treatment (ICD-10-PCS; principal; 2020-07-29)
DX: F10.230 Alcohol dependence with withdrawal, uncomplicated (principal); F17.210 Nicotine dependence, cigarettes, uncomplicated; F10.282 Alcohol dependence with alcohol-induced sleep disorder; F31.9 Bipolar disorder, unspecified; F41.9 Anxiety disorder, unspecified; I10 Essential (primary) hypertension; J45.20 Mild intermittent asthma, uncomplicated; G47.00 Insomnia, unspecified; Z62.810 Personal history of physical and sexual abuse in childhood; Z91.410 Personal history of adult physical and sexual abuse; Z63.4 Disappearance and death of family member; Z90.79 Acquired absence of other genital organ(s); Z86.19 Personal history of other infectious and parasitic diseases; Z88.0 Allergy status to penicillin
CPT/HCPCS: 36415; 80053; 85027; 86593; 86780; 93005; 93010; C9803; J0735; J2794; U0003; U0005

== ENCOUNTER 2020-08-17 00:34 | Inpatient (IN) | payer OTHER ==
[2020-08-17] MEDS ORDERED: ONDANSETRON *ODT* 4 MG TABLET SL PRN (01:00)
[2020-08-17] MEDS ORDERED: MAGNESIUM CITRATE 300 ML BOTTLE PO PRN (01:00)
[2020-08-17] MEDS ORDERED: MENTHOL/PHENOL 1 EACH UD MM PRN (01:00)
[2020-08-17] MEDS ORDERED: MAG HYDROX/AL HYDROX/SIMETH 30 ML UNIT-DOSE CUP PO PRN (01:00)
[2020-08-17] MEDS ORDERED: P-EPHED 60MG/TRIPROLIDI 2.5MG TABLET PO PRN (01:00)
[2020-08-17] MEDS ORDERED: IBUPROFEN 400 MG TABLET (FP) PO PRN (01:00)
[2020-08-17] MEDS ORDERED: ACETAMINOPHEN 325 MG TABLET (FP) PO PRN ×2 (01:00)
[2020-08-17] MEDS ORDERED: BISMUTH SUBSALICYLATE 524 MG/30 ML PO PRN (01:00)
[2020-08-17] MEDS ORDERED: DICYCLOMINE HCL 10 MG CAPSULE PO PRN (01:00)
[2020-08-17] MEDS ORDERED: hydrOXYzine PAMOATE 25 MG CAPSULE (FP) PO PRN (01:00)
[2020-08-17] MEDS ORDERED: METHOCARBAMOL 500 MG TABLET PO PRN (01:00)
[2020-08-17] MEDS ORDERED: guaiFENesin 200 MG/10 ML 10 ML UNIT-DOSE CUPS PO PRN (01:00)
[2020-08-17] MEDS ORDERED: NICOTINE POLACRILEX 4 MG GUM BUC PRN (01:00)
[2020-08-17] MEDS ORDERED: MAGNESIUM HYDROX 2400MG/30ML ORAL SUSPENSION 30 ML CUP PO PRN (01:00)
[2020-08-17 01:01] VITALS: BMI 29.5
[2020-08-17] MEDS ORDERED: diazePAM 5 MG TABLET PO PRN (09:26)
[2020-08-17] MEDS: diazePAM 5 MG TABLET PO SCH ×3 (11:20→22:27)
[2020-08-17] MEDS: NICOTINE 21 MG/24 HOURS TOPICAL PATCH TD SCH (11:20)
[2020-08-17] MEDS: amLODIPine BESYLATE 5 MG TABLET (FP) PO SCH (11:20)
[2020-08-17] MEDS: PRENATAL VITAMINS W/ FOLIC ACID TABLET (FP) PO SCH (11:20)
[2020-08-17] MEDS: MELATONIN 5 MG TABLETS PO SCH (22:27)
[2020-08-17] MEDS: THIAMINE HCL 100 MG TABLET (FP) PO SCH (22:27)
[2020-08-18] MEDS: diazePAM 5 MG TABLET PO SCH ×4 (06:27→22:03)
[2020-08-18] MEDS: amLODIPine BESYLATE 5 MG TABLET (FP) PO SCH (10:27)
[2020-08-18] MEDS: PRENATAL VITAMINS W/ FOLIC ACID TABLET (FP) PO SCH (10:28)
[2020-08-18] MEDS: NICOTINE 21 MG/24 HOURS TOPICAL PATCH TD SCH (10:28)
[2020-08-18 11:23] LABS: HEMATOCRIT 39.5 % (35.4-49); HEMOGLOBIN 13.3 GM/dL (11.7-16.9); MCH 29.4 pg (25.7-33.7); MCHC 33.7 g/dl (32.0-35.9); MEAN CELL VOLUME 87.3 fl (80-96); MEAN PLT VOLUME 8.5 fl (7.5-11.1); PLATELET COUNT 252 K/MM3 (134-434); RBC 4.53 M/mm3 (4.00-5.60); RDW 14.3 % (11.9-15.9); WHITE BLOOD COUNT 4.8 K/mm3 (4.0-10.0)
[2020-08-18 11:32] LABS: ALBUMIN 3.4 g/dl (3.4-5.0); BLOOD UREA NITROGEN 9.2 mg/dL (7-18); CALCIUM 8.4 mg/dL (8.5-10.1)
[2020-08-18 11:36] LABS: BILIRUBIN,TOTAL 0.7 mg/dL (0.2-1); CREATININE 0.7 mg/dL (0.55-1.3); TOT PROT 6.6 g/dl (6.4-8.2)
[2020-08-18] MEDS: THIAMINE HCL 100 MG TABLET (FP) PO SCH (22:02)
[2020-08-18] MEDS: MELATONIN 5 MG TABLETS PO SCH (22:02)
[2020-08-19] MEDS: diazePAM 5 MG TABLET PO SCH ×3 (05:49→22:06)
[2020-08-19] MEDS: amLODIPine BESYLATE 5 MG TABLET (FP) PO SCH (10:28)
[2020-08-19] MEDS: NICOTINE 21 MG/24 HOURS TOPICAL PATCH TD SCH (10:28)
[2020-08-19] MEDS: PRENATAL VITAMINS W/ FOLIC ACID TABLET (FP) PO SCH (10:29)
[2020-08-19] MEDS: MELATONIN 5 MG TABLETS PO SCH (22:07)
[2020-08-19] MEDS: THIAMINE HCL 100 MG TABLET (FP) PO SCH (22:07)
[2020-08-20] MEDS ORDERED: diazePAM 5 MG TABLET PO SCH (06:00)
[2020-08-20 09:26] VITALS: BP 107/72; PULSE 68; TEMP 97.1
[2020-08-20] MEDS: PRENATAL VITAMINS W/ FOLIC ACID TABLET (FP) PO SCH (10:31)
[2020-08-20] MEDS: NICOTINE 21 MG/24 HOURS TOPICAL PATCH TD SCH (10:31)
[2020-08-20] MEDS: amLODIPine BESYLATE 5 MG TABLET (FP) PO SCH (10:31)
[2020-08-20 14:07] LABS: SARS-CoV-2 NAA Not Detected (Not Detected)
[2020-08-21] MEDS ORDERED: diazePAM 5 MG TABLET PO ONE (06:00)
== END 2020-08-20 13:40 | disposition other institution (70) | DRG 775 ==
LOC: YASAS 00:34 → Y3N 04:36 → UNDOADMIN 04:36
PROVIDERS: ADMIT Allergy & Immunology; ATTEND Allergy & Immunology
PROC: HZ2ZZZZ Detoxification Services for Substance Abuse Treatment (ICD-10-PCS; principal; 2020-08-17)
DX: F10.230 Alcohol dependence with withdrawal, uncomplicated (principal); F17.210 Nicotine dependence, cigarettes, uncomplicated; F19.282 Other psychoactive substance dependence with psychoactive substance-induced sleep disorder; F19.24 Other psychoactive substance dependence with psychoactive substance-induced mood disorder; F25.9 Schizoaffective disorder, unspecified; F31.9 Bipolar disorder, unspecified; F41.9 Anxiety disorder, unspecified; G47.00 Insomnia, unspecified; I10 Essential (primary) hypertension; J45.20 Mild intermittent asthma, uncomplicated; Z91.19 Patient's noncompliance with other medical treatment and regimen; Z59.0 Homelessness
CPT/HCPCS: 36415; 80053; 85027; 86593; 86780; C9803; U0003; U0005

== ENCOUNTER 2020-08-20 13:56 | Inpatient (IN) | payer OTHER ==
[2020-08-20] MEDS ORDERED: P-EPHED 60MG/TRIPROLIDI 2.5MG TABLET PO PRN (15:20)
[2020-08-20] MEDS ORDERED: IBUPROFEN 400 MG TABLET (FP) PO PRN (15:20)
[2020-08-20] MEDS ORDERED: MAGNESIUM CITRATE 300 ML BOTTLE PO PRN (15:20)
[2020-08-20] MEDS ORDERED: MAG HYDROX/AL HYDROX/SIMETH 30 ML UNIT-DOSE CUP PO PRN (15:20)
[2020-08-20] MEDS ORDERED: NICOTINE POLACRILEX 2 MG GUM BUC PRN (15:20)
[2020-08-20] MEDS ORDERED: guaiFENesin 200 MG/10 ML 10 ML UNIT-DOSE CUPS PO PRN (15:20)
[2020-08-20] MEDS ORDERED: MAGNESIUM HYDROX 2400MG/30ML ORAL SUSPENSION 30 ML CUP PO PRN (15:20)
[2020-08-20] MEDS ORDERED: LOPERAMIDE HCL 2 MG CAPSULE PO PRN (15:20)
[2020-08-20] MEDS ORDERED: ACETAMINOPHEN 325 MG TABLET (FP) PO PRN (15:20)
[2020-08-20] MEDS ORDERED: MENTHOL/PHENOL 1 EACH UD MM PRN (15:20)
[2020-08-20] MEDS: MIRTAZAPINE 15 MG TABLET (FP) PO SCH (21:06)
[2020-08-20] MEDS: BENZTROPINE MESYLATE 1 MG TABLET PO SCH (21:06)
[2020-08-20] MEDS: MELATONIN 5 MG TABLETS PO SCH (21:06)
[2020-08-20] MEDS: risperiDONE 1 MG TABLET PO SCH (21:06)
[2020-08-20] MEDS: THIAMINE HCL 100 MG TABLET (FP) PO SCH (21:06)
[2020-08-21] MEDS: PRENATAL VITAMINS W/ FOLIC ACID TABLET (FP) PO SCH (09:49)
[2020-08-21] MEDS: risperiDONE 1 MG TABLET PO SCH ×2 (09:49→21:11)
[2020-08-21] MEDS: BENZTROPINE MESYLATE 1 MG TABLET PO SCH ×2 (09:49→21:11)
[2020-08-21] MEDS: NICOTINE 7 MG/24 HOURS TOPICAL PATCH TD SCH (09:51)
[2020-08-21] MEDS: amLODIPine BESYLATE 5 MG TABLET (FP) PO SCH (11:01)
[2020-08-21] MEDS: THIAMINE HCL 100 MG TABLET (FP) PO SCH (21:11)
[2020-08-21] MEDS: MIRTAZAPINE 15 MG TABLET (FP) PO SCH (21:11)
[2020-08-21] MEDS: MELATONIN 5 MG TABLETS PO SCH (21:12)
[2020-08-22] MEDS: PRENATAL VITAMINS W/ FOLIC ACID TABLET (FP) PO SCH (09:30)
[2020-08-22] MEDS: BENZTROPINE MESYLATE 1 MG TABLET PO SCH ×2 (09:30→21:01)
[2020-08-22] MEDS: risperiDONE 1 MG TABLET PO SCH ×2 (09:30→21:02)
[2020-08-22] MEDS: amLODIPine BESYLATE 5 MG TABLET (FP) PO SCH (09:30)
[2020-08-22] MEDS: NICOTINE 7 MG/24 HOURS TOPICAL PATCH TD SCH (09:43)
[2020-08-22] MEDS: THIAMINE HCL 100 MG TABLET (FP) PO SCH (21:01)
[2020-08-22] MEDS: MELATONIN 5 MG TABLETS PO SCH (21:02)
[2020-08-22] MEDS: MIRTAZAPINE 15 MG TABLET (FP) PO SCH (21:02)
[2020-08-23] MEDS: risperiDONE 1 MG TABLET PO SCH ×2 (09:47→21:13)
[2020-08-23] MEDS: amLODIPine BESYLATE 5 MG TABLET (FP) PO SCH (09:47)
[2020-08-23] MEDS: PRENATAL VITAMINS W/ FOLIC ACID TABLET (FP) PO SCH (09:47)
[2020-08-23] MEDS: NICOTINE 7 MG/24 HOURS TOPICAL PATCH TD SCH (09:47)
[2020-08-23] MEDS: BENZTROPINE MESYLATE 1 MG TABLET PO SCH ×2 (09:47→21:14)
[2020-08-23] MEDS: MELATONIN 5 MG TABLETS PO SCH (21:12)
[2020-08-23] MEDS: MIRTAZAPINE 15 MG TABLET (FP) PO SCH (21:13)
[2020-08-23] MEDS: THIAMINE HCL 100 MG TABLET (FP) PO SCH (21:13)
[2020-08-24] MEDS: NICOTINE 7 MG/24 HOURS TOPICAL PATCH TD SCH (09:39)
[2020-08-24] MEDS: BENZTROPINE MESYLATE 1 MG TABLET PO SCH ×2 (09:39→21:16)
[2020-08-24] MEDS: PRENATAL VITAMINS W/ FOLIC ACID TABLET (FP) PO SCH (09:39)
[2020-08-24] MEDS: amLODIPine BESYLATE 10 MG TABLET (FP) PO SCH (09:39)
[2020-08-24] MEDS: risperiDONE 1 MG TABLET PO SCH ×2 (09:39→21:16)
[2020-08-24] MEDS: THIAMINE HCL 100 MG TABLET (FP) PO SCH (21:16)
[2020-08-24] MEDS: MIRTAZAPINE 15 MG TABLET (FP) PO SCH (21:16)
[2020-08-24] MEDS: MELATONIN 5 MG TABLETS PO SCH (21:17)
[2020-08-25] MEDS: PRENATAL VITAMINS W/ FOLIC ACID TABLET (FP) PO SCH (10:10)
[2020-08-25] MEDS: risperiDONE 1 MG TABLET PO SCH ×2 (10:10→22:07)
[2020-08-25] MEDS: BENZTROPINE MESYLATE 1 MG TABLET PO SCH ×2 (10:10→22:07)
[2020-08-25] MEDS: amLODIPine BESYLATE 10 MG TABLET (FP) PO SCH (10:10)
[2020-08-25] MEDS: NICOTINE 7 MG/24 HOURS TOPICAL PATCH TD SCH (10:11)
[2020-08-25] MEDS: MELATONIN 5 MG TABLETS PO SCH (22:07)
[2020-08-25] MEDS: THIAMINE HCL 100 MG TABLET (FP) PO SCH (22:07)
[2020-08-25] MEDS: MIRTAZAPINE 15 MG TABLET (FP) PO SCH (22:07)
[2020-08-26] MEDS: amLODIPine BESYLATE 10 MG TABLET (FP) PO SCH (10:02)
[2020-08-26] MEDS: PRENATAL VITAMINS W/ FOLIC ACID TABLET (FP) PO SCH (10:02)
[2020-08-26] MEDS: BENZTROPINE MESYLATE 1 MG TABLET PO SCH ×2 (10:02→21:13)
[2020-08-26] MEDS: risperiDONE 1 MG TABLET PO SCH ×2 (10:03→21:12)
[2020-08-26] MEDS: NICOTINE 7 MG/24 HOURS TOPICAL PATCH TD SCH (10:03)
[2020-08-26] MEDS: THIAMINE HCL 100 MG TABLET (FP) PO SCH (21:12)
[2020-08-26] MEDS: MIRTAZAPINE 15 MG TABLET (FP) PO SCH (21:12)
[2020-08-26] MEDS: MELATONIN 5 MG TABLETS PO SCH (21:12)
[2020-08-27] MEDS: amLODIPine BESYLATE 10 MG TABLET (FP) PO SCH (09:47)
[2020-08-27] MEDS: PRENATAL VITAMINS W/ FOLIC ACID TABLET (FP) PO SCH (09:47)
[2020-08-27] MEDS: BENZTROPINE MESYLATE 1 MG TABLET PO SCH ×2 (09:48→21:05)
[2020-08-27] MEDS: NICOTINE 7 MG/24 HOURS TOPICAL PATCH TD SCH (09:48)
[2020-08-27] MEDS: risperiDONE 1 MG TABLET PO SCH ×2 (09:49→21:05)
[2020-08-27] MEDS: THIAMINE HCL 100 MG TABLET (FP) PO SCH (21:05)
[2020-08-27] MEDS: MIRTAZAPINE 15 MG TABLET (FP) PO SCH (21:05)
[2020-08-27] MEDS: MELATONIN 5 MG TABLETS PO SCH (21:06)
[2020-08-28] MEDS: BENZTROPINE MESYLATE 1 MG TABLET PO SCH ×2 (09:39→21:07)
[2020-08-28] MEDS: amLODIPine BESYLATE 10 MG TABLET (FP) PO SCH (09:39)
[2020-08-28] MEDS: PRENATAL VITAMINS W/ FOLIC ACID TABLET (FP) PO SCH (09:40)
[2020-08-28] MEDS: NICOTINE 7 MG/24 HOURS TOPICAL PATCH TD SCH (09:40)
[2020-08-28] MEDS: risperiDONE 1 MG TABLET PO SCH ×2 (09:40→21:07)
[2020-08-28] MEDS: MIRTAZAPINE 15 MG TABLET (FP) PO SCH (21:07)
[2020-08-28] MEDS: MELATONIN 5 MG TABLETS PO SCH (21:07)
[2020-08-28] MEDS: THIAMINE HCL 100 MG TABLET (FP) PO SCH (21:07)
[2020-08-29] MEDS: BENZTROPINE MESYLATE 1 MG TABLET PO SCH ×2 (09:41→21:05)
[2020-08-29] MEDS: NICOTINE 7 MG/24 HOURS TOPICAL PATCH TD SCH (09:42)
[2020-08-29] MEDS: amLODIPine BESYLATE 10 MG TABLET (FP) PO SCH (09:42)
[2020-08-29] MEDS: risperiDONE 1 MG TABLET PO SCH ×2 (09:42→21:05)
[2020-08-29] MEDS: PRENATAL VITAMINS W/ FOLIC ACID TABLET (FP) PO SCH (09:42)
[2020-08-29] MEDS: THIAMINE HCL 100 MG TABLET (FP) PO SCH (21:05)
[2020-08-29] MEDS: MIRTAZAPINE 15 MG TABLET (FP) PO SCH (21:05)
[2020-08-29] MEDS: MELATONIN 5 MG TABLETS PO SCH (21:05)
[2020-08-30] MEDS: amLODIPine BESYLATE 10 MG TABLET (FP) PO SCH ×2 (07:46→09:53)
[2020-08-30] MEDS: risperiDONE 1 MG TABLET PO SCH ×2 (09:52→21:10)
[2020-08-30] MEDS: NICOTINE 7 MG/24 HOURS TOPICAL PATCH TD SCH (09:52)
[2020-08-30] MEDS: PRENATAL VITAMINS W/ FOLIC ACID TABLET (FP) PO SCH (09:52)
[2020-08-30] MEDS: BENZTROPINE MESYLATE 1 MG TABLET PO SCH ×2 (09:52→21:11)
[2020-08-30] MEDS: MELATONIN 5 MG TABLETS PO SCH (21:10)
[2020-08-30] MEDS: THIAMINE HCL 100 MG TABLET (FP) PO SCH (21:10)
[2020-08-30] MEDS: MIRTAZAPINE 15 MG TABLET (FP) PO SCH (21:10)
[2020-08-31] MEDS: BENZTROPINE MESYLATE 1 MG TABLET PO SCH ×2 (09:47→21:02)
[2020-08-31] MEDS: NICOTINE 7 MG/24 HOURS TOPICAL PATCH TD SCH (09:47)
[2020-08-31] MEDS: hydrOXYzine PAMOATE 25 MG CAPSULE (FP) PO PRN ×2 (09:47→21:02)
[2020-08-31] MEDS: amLODIPine BESYLATE 10 MG TABLET (FP) PO SCH (09:47)
[2020-08-31] MEDS: PRENATAL VITAMINS W/ FOLIC ACID TABLET (FP) PO SCH (09:47)
[2020-08-31] MEDS: risperiDONE 1 MG TABLET PO SCH ×2 (09:47→21:02)
[2020-08-31] MEDS: MELATONIN 5 MG TABLETS PO SCH (21:02)
[2020-08-31] MEDS: THIAMINE HCL 100 MG TABLET (FP) PO SCH (21:02)
[2020-08-31] MEDS: MIRTAZAPINE 15 MG TABLET (FP) PO SCH (21:02)
[2020-09-01] MEDS: PRENATAL VITAMINS W/ FOLIC ACID TABLET (FP) PO SCH (09:28)
[2020-09-01] MEDS: amLODIPine BESYLATE 10 MG TABLET (FP) PO SCH (09:28)
[2020-09-01] MEDS: risperiDONE 1 MG TABLET PO SCH ×2 (09:29→22:12)
[2020-09-01] MEDS: NICOTINE 7 MG/24 HOURS TOPICAL PATCH TD SCH (09:29)
[2020-09-01] MEDS: BENZTROPINE MESYLATE 1 MG TABLET PO SCH ×2 (09:29→22:12)
[2020-09-01] MEDS: MIRTAZAPINE 15 MG TABLET (FP) PO SCH (22:12)
[2020-09-01] MEDS: THIAMINE HCL 100 MG TABLET (FP) PO SCH (22:12)
[2020-09-01] MEDS: MELATONIN 5 MG TABLETS PO SCH (22:12)
[2020-09-02] MEDS: amLODIPine BESYLATE 10 MG TABLET (FP) PO SCH (09:16)
[2020-09-02] MEDS: PRENATAL VITAMINS W/ FOLIC ACID TABLET (FP) PO SCH (09:16)
[2020-09-02] MEDS: NICOTINE 7 MG/24 HOURS TOPICAL PATCH TD SCH (09:16)
[2020-09-02] MEDS: risperiDONE 1 MG TABLET PO SCH ×2 (09:17→22:17)
[2020-09-02] MEDS: BENZTROPINE MESYLATE 1 MG TABLET PO SCH ×2 (09:17→22:17)
[2020-09-02] MEDS: THIAMINE HCL 100 MG TABLET (FP) PO SCH (22:17)
[2020-09-02] MEDS: MELATONIN 5 MG TABLETS PO SCH (22:17)
[2020-09-02] MEDS: MIRTAZAPINE 15 MG TABLET (FP) PO SCH (22:17)
[2020-09-03 07:00] VITALS: BP 141/97; PULSE 87; TEMP 96.9
[2020-09-03] MEDS: amLODIPine BESYLATE 10 MG TABLET (FP) PO SCH (09:13)
[2020-09-03] MEDS: PRENATAL VITAMINS W/ FOLIC ACID TABLET (FP) PO SCH (09:14)
[2020-09-03] MEDS: NICOTINE 7 MG/24 HOURS TOPICAL PATCH TD SCH (09:14)
[2020-09-03] MEDS: risperiDONE 1 MG TABLET PO SCH (09:14)
[2020-09-03] MEDS: BENZTROPINE MESYLATE 1 MG TABLET PO SCH (09:14)
== END 2020-09-03 09:22 | disposition home or self-care (01) | DRG 772 ==
LOC: YASAS 13:56 → Y5N 13:57
PROVIDERS: ADMIT Allergy & Immunology; ATTEND Allergy & Immunology
PROC: HZ42ZZZ Group Counseling for Substance Abuse Treatment, Cognitive-Behavioral (ICD-10-PCS; principal; 2020-08-20)
DX: F10.20 Alcohol dependence, uncomplicated (principal); F17.210 Nicotine dependence, cigarettes, uncomplicated; F20.9 Schizophrenia, unspecified; F41.9 Anxiety disorder, unspecified; F31.9 Bipolar disorder, unspecified; I10 Essential (primary) hypertension; J45.909 Unspecified asthma, uncomplicated; G47.00 Insomnia, unspecified; Z86.19 Personal history of other infectious and parasitic diseases; Z88.0 Allergy status to penicillin; Z56.0 Unemployment, unspecified; Z59.0 Homelessness
CPT/HCPCS: J2794

== ENCOUNTER 2021-07-02 16:18 | Inpatient (IN) | payer OTHER ==
[2021-07-02 17:01] VITALS: BMI 27.0
[2021-07-02] MEDS ORDERED: amLODIPine BESYLATE 5 MG TABLET (FP) PO SCH (20:00)
[2021-07-02] MEDS ORDERED: DICYCLOMINE HCL 10 MG CAPSULE PO PRN (20:01)
[2021-07-02] MEDS ORDERED: hydrOXYzine PAMOATE 25 MG CAPSULE (FP) PO PRN (20:01)
[2021-07-02] MEDS ORDERED: MELATONIN 5 MG TABLETS PO PRN (20:01)
[2021-07-02] MEDS ORDERED: BENZOCAINE/MENTHOL (CHLORASEPTIC ) LOZENGE MM PRN (20:01)
[2021-07-02] MEDS ORDERED: MAGNESIUM HYDROX 2400MG/30ML ORAL SUSPENSION 30 ML CUP PO PRN (20:01)
[2021-07-02] MEDS ORDERED: METHOCARBAMOL 500 MG TABLET PO PRN (20:01)
[2021-07-02] MEDS ORDERED: MAG HYDROX/AL HYDROX/SIMETH 30 ML UNIT-DOSE CUP PO PRN (20:01)
[2021-07-02] MEDS ORDERED: MAGNESIUM CITRATE 300 ML BOTTLE PO PRN (20:01)
[2021-07-02] MEDS ORDERED: ACETAMINOPHEN 325 MG TABLET (FP) PO PRN ×2 (20:01)
[2021-07-02] MEDS ORDERED: IBUPROFEN 400 MG TABLET (FP) PO PRN (20:01)
[2021-07-02] MEDS ORDERED: ONDANSETRON *ODT* 4 MG TABLET SL PRN (20:01)
[2021-07-02] MEDS ORDERED: LOPERAMIDE HCL 2 MG CAPSULE PO PRN (20:01)
[2021-07-02] MEDS ORDERED: NICOTINE 10 MG CARTRIDGE (INHALER) IH PRN (20:01)
[2021-07-02] MEDS ORDERED: BISMUTH SUBSALICYLATE 524 MG/30 ML PO PRN (20:01)
[2021-07-02] MEDS ORDERED: chlordiazePOXIDE HCL 25 MG CAPSULE PO PRN (20:03)
[2021-07-03] MEDS: chlordiazePOXIDE HCL 25 MG CAPSULE PO SCH ×5 (02:27→22:23)
[2021-07-03] MEDS: THIAMINE HCL 100 MG TABLET (FP) PO SCH ×2 (02:29→22:23)
[2021-07-03] MEDS ORDERED: cloNIDine HCL 0.1 MG TABLET PO ONE ×2 (09:45→13:31)
[2021-07-03] MEDS: PRENATAL VITAMINS W/ FOLIC ACID TABLET (FP) PO SCH (10:22)
[2021-07-03 10:45] LABS: CALCIUM 8.4 mg/dL (8.5-10.1)
[2021-07-03 10:46] LABS: ALBUMIN 2.8 g/dl (3.4-5.0); BLOOD UREA NITROGEN 11.5 mg/dL (7-18)
[2021-07-03 10:50] LABS: BILIRUBIN,TOTAL 0.4 mg/dL (0.2-1); CREATININE 0.9 mg/dL (0.55-1.3); HEMATOCRIT 37.8 % (35.4-49); HEMOGLOBIN 12.7 GM/dL (11.7-16.9); MCH 30.9 pg (25.7-33.7); MCHC 33.7 g/dl (32.0-35.9); MEAN CELL VOLUME 91.8 fl (80-96); MEAN PLT VOLUME 8.1 fl (7.5-11.1); PLATELET COUNT 228 10^3/uL (134-434); RBC 4.11 M/mm3 (4.00-5.60); RDW 13.8 % (11.9-15.9); WHITE BLOOD COUNT 4.3 K/mm3 (4.0-10.0)
[2021-07-03 10:51] LABS: TOT PROT 5.8 g/dl (6.4-8.2)
[2021-07-03] MEDS: amLODIPine BESYLATE 10 MG TABLET (FP) PO SCH (11:17)
[2021-07-03] MEDS ORDERED: BENZTROPINE MESYLATE 1 MG TABLET PO SCH ×2 (22:00)
[2021-07-03] MEDS ORDERED: MIRTAZAPINE 15 MG TABLET (FP) PO SCH (22:00)
[2021-07-03] MEDS ORDERED: risperiDONE 1 MG TABLET PO SCH (22:00)
[2021-07-04] MEDS: chlordiazePOXIDE HCL 25 MG CAPSULE PO SCH ×2 (05:37→10:43)
[2021-07-04 09:30] VITALS: BP 138/98; PULSE 93; TEMP 98.7
[2021-07-04] MEDS: amLODIPine BESYLATE 10 MG TABLET (FP) PO SCH (10:43)
[2021-07-04] MEDS: PRENATAL VITAMINS W/ FOLIC ACID TABLET (FP) PO SCH (10:43)
[2021-07-05] MEDS ORDERED: chlordiazePOXIDE HCL 10 MG CAPSULE PO PRN
[2021-07-05] MEDS ORDERED: chlordiazePOXIDE HCL 10 MG CAPSULE PO SCH (05:00)
[2021-07-05 06:06] LABS: SARS-CoV-2 NAA Not Detected (Not Detected)
[2021-07-06] MEDS ORDERED: chlordiazePOXIDE HCL 10 MG CAPSULE PO SCH (05:00)
[2021-07-07] MEDS ORDERED: chlordiazePOXIDE HCL 10 MG CAPSULE PO ONE (05:00)
== END 2021-07-04 14:12 | disposition left against medical advice (07) | DRG 770 ==
LOC: YASAS 16:18 → Y6N 20:49
PROVIDERS: ADMIT Allergy & Immunology; ATTEND Allergy & Immunology
PROC: HZ2ZZZZ Detoxification Services for Substance Abuse Treatment (ICD-10-PCS; principal; 2021-07-02)
DX: F10.230 Alcohol dependence with withdrawal, uncomplicated (principal); F10.220 Alcohol dependence with intoxication, uncomplicated; F17.210 Nicotine dependence, cigarettes, uncomplicated; F19.24 Other psychoactive substance dependence with psychoactive substance-induced mood disorder; F31.9 Bipolar disorder, unspecified; F20.9 Schizophrenia, unspecified; I10 Essential (primary) hypertension; Z28.310 Unvaccinated for COVID-19; Z59.00 Homelessness unspecified; Z56.0 Unemployment, unspecified; Z86.19 Personal history of other infectious and parasitic diseases; Z88.0 Allergy status to penicillin
CPT/HCPCS: 36415; 80053; 85027; 86593; 86780; 93005; 93010; C9803-CS; J0735; J2794; U0003; U0005

== ENCOUNTER 2023-04-24 01:11 | Inpatient (IN) | payer OTHER ==
[2023-04-24] MEDS ORDERED: MAGNESIUM HYDROX 2400MG/30ML ORAL SUSPENSION 30 ML CUP PO PRN (01:44)
[2023-04-24] MEDS ORDERED: ACETAMINOPHEN 325 MG TABLET (FP) PO PRN (01:44)
[2023-04-24] MEDS ORDERED: NALOXONE HCL 0.4 MG/ML VIAL IM PRN (01:44)
[2023-04-24] MEDS ORDERED: LOPERAMIDE HCL 2 MG CAPSULE PO PRN (01:44)
[2023-04-24] MEDS ORDERED: guaiFENesin 600 MG TABLET.ER (FP) PO PRN (01:44)
[2023-04-24] MEDS ORDERED: NICOTINE POLACRILEX 4 MG GUM BUC PRN (01:44)
[2023-04-24] MEDS ORDERED: METHOCARBAMOL 500 MG TABLET PO PRN (01:44)
[2023-04-24] MEDS ORDERED: IBUPROFEN 400 MG TABLET (FP) PO PRN (01:44)
[2023-04-24] MEDS ORDERED: NALOXONE HCL (KLOXXADO) 8 MG SPRAY NS PRN (01:44)
[2023-04-24] MEDS ORDERED: BENZONATATE 200 MG CAPSULE PO PRN (01:44)
[2023-04-24] MEDS ORDERED: POLYETHYLENE GLYCOL (HEALTHYLAX) 3350 17 GM PACKET PO PRN (01:44)
[2023-04-24] MEDS ORDERED: chlordiazePOXIDE HCL 25 MG CAPSULE PO PRN (01:44)
[2023-04-24] MEDS ORDERED: IBUPROFEN 600 MG TABLET (FP) PO PRN (01:44)
[2023-04-24] MEDS ORDERED: hydrOXYzine PAMOATE 25 MG CAPSULE (FP) PO PRN (01:44)
[2023-04-24] MEDS ORDERED: BISMUTH SUBSALICYLATE 524 MG/30 ML PO PRN (01:44)
[2023-04-24] MEDS ORDERED: DICYCLOMINE HCL 10 MG CAPSULE PO PRN (01:44)
[2023-04-24] MEDS ORDERED: MAG HYDROX/AL HYDROX/SIMETH 30 ML UNIT-DOSE CUP PO PRN (01:44)
[2023-04-24] MEDS ORDERED: BENZOCAINE/MENTHOL (CHLORASEPTIC ) LOZENGE MM PRN (01:44)
[2023-04-24] MEDS ORDERED: ONDANSETRON *ODT* 4 MG TABLET SL PRN (01:44)
[2023-04-24 02:41] VITALS: BMI 25.2
[2023-04-24] MEDS: chlordiazePOXIDE HCL 25 MG CAPSULE PO SCH (06:00)
[2023-04-24] MEDS ORDERED: chlordiazePOXIDE HCL 25 MG CAPSULE ONE ×2 (07:32→09:58)
[2023-04-24] MEDS: PRENATAL VITAMINS W/ FOLIC ACID TABLET (FP) PO SCH (09:35)
[2023-04-24] MEDS: amLODIPine BESYLATE 5 MG TABLET (FP) PO SCH (09:35)
[2023-04-24] MEDS: NICOTINE 21 MG/24 HOURS TOPICAL PATCH TD SCH (09:35)
[2023-04-24] MEDS ORDERED: amLODIPine BESYLATE 5 MG TABLET (FP) ONE (09:45)
[2023-04-24] MEDS ORDERED: PRENATAL VITAMINS W/ FOLIC ACID TABLET (FP) PO ONE (09:45)
[2023-04-24] MEDS ORDERED: NICOTINE 21 MG/24 HOURS TOPICAL PATCH ONE (09:45)
[2023-04-24 10:38] LABS: HEMATOCRIT 32.5 % (35.4-49); HEMOGLOBIN 10.6 GM/dL (11.7-16.9); MCH 25.3 pg (25.7-33.7); MCHC 32.5 g/dl (32.0-35.9); MEAN CELL VOLUME 77.7 fl (80-96); MEAN PLT VOLUME 7.8 fl (7.5-11.1); PLATELET COUNT 395 10^3/uL (134-434); RBC 4.18 M/mm3 (4.00-5.60); RDW 19.6 % (11.9-15.9); WHITE BLOOD COUNT 5.4 K/mm3 (4.0-10.0)
[2023-04-24 10:40] LABS: CHLORIDE 104 mmol/L (98-107); POTASSIUM 4.2 mmol/L (3.5-5.1); SODIUM 138 mmol/L (136-145)
[2023-04-24 10:42] LABS: CALCIUM 8.8 mg/dL (8.5-10.1)
[2023-04-24 10:43] LABS: ALBUMIN 3.3 g/dl (3.4-5.0); ANION GAP 6 mmol/L (4-13); BLOOD UREA NITROGEN 13.9 mg/dL (7-18); CO2 28 mmol/L (21-32); GLUCOSE,RANDOM 124 mg/dL (74-106)
[2023-04-24 10:46] LABS: CREATININE 0.9 mg/dL (0.55-1.3); SGPT/ALT 36 U/L (13-61)
[2023-04-24 10:47] LABS: SGOT/AST 61 U/L (15-37)
[2023-04-24 10:49] LABS: ALK PHOS 78 U/L (45-117); BILIRUBIN,TOTAL 0.5 mg/dL (0.2-1); TOT PROT 6.9 g/dl (6.4-8.2)
[2023-04-24] MEDS: MELATONIN 5 MG TABLETS PO SCH (22:14)
[2023-04-24] MEDS: THIAMINE HCL 100 MG TABLET (FP) PO SCH (22:15)
[2023-04-25] MEDS: chlordiazePOXIDE HCL 25 MG CAPSULE PO SCH (05:52)
[2023-04-25 10:06] VITALS: BP 127/84; PULSE 70; RESP 16; TEMP 98.2
[2023-04-26] MEDS ORDERED: chlordiazePOXIDE HCL 10 MG CAPSULE PO PRN
[2023-04-26] MEDS ORDERED: chlordiazePOXIDE HCL 10 MG CAPSULE PO SCH (05:00)
[2023-04-27] MEDS ORDERED: chlordiazePOXIDE HCL 10 MG CAPSULE PO SCH (05:00)
[2023-04-28] MEDS ORDERED: chlordiazePOXIDE HCL 10 MG CAPSULE PO ONE (05:00)
== END 2023-04-25 11:56 | disposition left against medical advice (07) | DRG 770 ==
LOC: YASAS 01:11 → Y6N 10:17
PROVIDERS: ADMIT Allergy & Immunology; ATTEND Surgery
PROC: HZ2ZZZZ Detoxification Services for Substance Abuse Treatment (ICD-10-PCS; principal; 2023-04-24)
DX: F10.230 Alcohol dependence with withdrawal, uncomplicated (principal); F17.210 Nicotine dependence, cigarettes, uncomplicated; F31.9 Bipolar disorder, unspecified; F19.24 Other psychoactive substance dependence with psychoactive substance-induced mood disorder; I10 Essential (primary) hypertension; J45.20 Mild intermittent asthma, uncomplicated; Z28.310 Unvaccinated for COVID-19; Z28.9 Immunization not carried out for unspecified reason; Z91.410 Personal history of adult physical and sexual abuse; Z63.0 Problems in relationship with spouse or partner; Z86.19 Personal history of other infectious and parasitic diseases; Z88.0 Allergy status to penicillin
CPT/HCPCS: 36415; 80053; 80307; 85027; 86593; 86780; 87635; 93005; 93010

== ENCOUNTER 2023-05-07 23:36 | Inpatient (IN) | payer OTHER ==
[2023-05-08 00:04] VITALS: BMI 25.4
[2023-05-08] MEDS ORDERED: METHOCARBAMOL 500 MG TABLET PO PRN (01:03)
[2023-05-08] MEDS ORDERED: ACETAMINOPHEN 325 MG TABLET (FP) PO PRN (01:03)
[2023-05-08] MEDS ORDERED: POLYETHYLENE GLYCOL (HEALTHYLAX) 3350 17 GM PACKET PO PRN (01:03)
[2023-05-08] MEDS ORDERED: ONDANSETRON *ODT* 4 MG TABLET SL PRN (01:03)
[2023-05-08] MEDS ORDERED: IBUPROFEN 600 MG TABLET (FP) PO PRN (01:03)
[2023-05-08] MEDS ORDERED: BENZONATATE 200 MG CAPSULE PO PRN (01:03)
[2023-05-08] MEDS ORDERED: NICOTINE POLACRILEX 4 MG GUM BUC PRN (01:03)
[2023-05-08] MEDS ORDERED: LOPERAMIDE HCL 2 MG CAPSULE PO PRN (01:03)
[2023-05-08] MEDS ORDERED: BENZOCAINE/MENTHOL (CHLORASEPTIC ) LOZENGE MM PRN (01:03)
[2023-05-08] MEDS ORDERED: MAGNESIUM HYDROX 2400MG/30ML ORAL SUSPENSION 30 ML CUP PO PRN (01:03)
[2023-05-08] MEDS ORDERED: guaiFENesin 600 MG TABLET.ER (FP) PO PRN (01:03)
[2023-05-08] MEDS ORDERED: IBUPROFEN 400 MG TABLET (FP) PO PRN (01:03)
[2023-05-08] MEDS ORDERED: DICYCLOMINE HCL 10 MG CAPSULE PO PRN (01:03)
[2023-05-08] MEDS ORDERED: NALOXONE HCL (KLOXXADO) 8 MG SPRAY NS PRN (01:03)
[2023-05-08] MEDS ORDERED: BISMUTH SUBSALICYLATE 524 MG/30 ML PO PRN (01:03)
[2023-05-08] MEDS ORDERED: MAG HYDROX/AL HYDROX/SIMETH 30 ML UNIT-DOSE CUP PO PRN (01:03)
[2023-05-08] MEDS ORDERED: NALOXONE HCL 0.4 MG/ML VIAL IM PRN (01:03)
[2023-05-08] MEDS: METOPROLOL TARTRATE 25 MG TABLET (FP) PO ONE (01:30)
[2023-05-08] MEDS: PRENATAL VITAMINS W/ FOLIC ACID TABLET (FP) PO SCH (10:11)
[2023-05-08] MEDS: NICOTINE 21 MG/24 HOURS TOPICAL PATCH TD SCH (10:11)
[2023-05-08 10:54] LABS: HEMATOCRIT 31.8 % (35.4-49); HEMOGLOBIN 10.1 GM/dL (11.7-16.9); MCH 24.9 pg (25.7-33.7); MCHC 31.8 g/dl (32.0-35.9); MEAN CELL VOLUME 78.3 fl (80-96); MEAN PLT VOLUME 7.6 fl (7.5-11.1); PLATELET COUNT 314 10^3/uL (134-434); RBC 4.06 M/mm3 (4.00-5.60); RDW 18.7 % (11.9-15.9); WHITE BLOOD COUNT 5.1 K/mm3 (4.0-10.0)
[2023-05-08] MEDS ORDERED: chlordiazePOXIDE HCL 25 MG CAPSULE PO PRN (10:58)
[2023-05-08] MEDS: chlordiazePOXIDE HCL 25 MG CAPSULE PO SCH (11:32)
[2023-05-08 11:45] LABS: CHLORIDE 107 mmol/L (98-107); POTASSIUM 3.6 mmol/L (3.5-5.1); SODIUM 143 mmol/L (136-145)
[2023-05-08 11:53] LABS: ALBUMIN 3.1 g/dl (3.4-5.0); ANION GAP 9 mmol/L (4-13); BLOOD UREA NITROGEN 16.1 mg/dL (7-18); CALCIUM 8.5 mg/dL (8.5-10.1); CO2 27 mmol/L (21-32); GLUCOSE,RANDOM 92 mg/dL (74-106)
[2023-05-08 11:55] LABS: CREATININE 1.1 mg/dL (0.55-1.3)
[2023-05-08 11:56] LABS: BILIRUBIN,TOTAL 0.6 mg/dL (0.2-1); SGOT/AST 42 U/L (15-37); SGPT/ALT 35 U/L (13-61); TOT PROT 6.6 g/dl (6.4-8.2)
[2023-05-08 11:57] LABS: ALK PHOS 71 U/L (45-117)
[2023-05-08 13:36] VITALS: PULSE 86; RESP 18
[2023-05-08 17:52] VITALS: BP 140/85; TEMP 98.2
[2023-05-08] MEDS ORDERED: MELATONIN 5 MG TABLETS PO SCH (22:00)
[2023-05-08] MEDS ORDERED: THIAMINE HCL 100 MG TABLET (FP) PO SCH (22:00)
[2023-05-10] MEDS ORDERED: chlordiazePOXIDE HCL 25 MG CAPSULE PO SCH (05:00)
[2023-05-11] MEDS ORDERED: chlordiazePOXIDE HCL 10 MG CAPSULE PO PRN
[2023-05-11] MEDS ORDERED: chlordiazePOXIDE HCL 10 MG CAPSULE PO SCH (05:00)
[2023-05-12] MEDS ORDERED: chlordiazePOXIDE HCL 10 MG CAPSULE PO SCH (05:00)
[2023-05-13] MEDS ORDERED: chlordiazePOXIDE HCL 10 MG CAPSULE PO ONE (05:00)
== END 2023-05-08 18:15 | disposition left against medical advice (07) | DRG 770 ==
LOC: YASAS 23:36 → Y3N 05-08 02:08
PROVIDERS: ADMIT Allergy & Immunology; ATTEND Surgery
PROC: HZ2ZZZZ Detoxification Services for Substance Abuse Treatment (ICD-10-PCS; principal; 2023-05-08)
DX: F10.230 Alcohol dependence with withdrawal, uncomplicated (principal); F17.210 Nicotine dependence, cigarettes, uncomplicated; F19.24 Other psychoactive substance dependence with psychoactive substance-induced mood disorder; I10 Essential (primary) hypertension; J45.20 Mild intermittent asthma, uncomplicated; Z86.19 Personal history of other infectious and parasitic diseases; Z88.0 Allergy status to penicillin; Z28.310 Unvaccinated for COVID-19; Z28.9 Immunization not carried out for unspecified reason
CPT/HCPCS: 36415; 80053; 80307; 85027; 86593; 86780; 87635; 93005; 93010